=== PATIENT | female | born 1975 | race American Indian/Alaskan Native ===

== ENCOUNTER 2016-02-18 07:01 | Emergency (ER) | payer SELFPAY ==
[2016-02-18] MEDS ORDERED: MORPHINE IV ONE (07:28)
[2016-02-18] MEDS ORDERED: NACL 0.9% 1000 ML 1,000 ML IV ONE (07:28)
[2016-02-18] MEDS ORDERED: DUONEB 0.5 MG-3 MG/3 ML SOLN IH ONE (07:28)
[2016-02-18] MEDS ORDERED: ZOFRAN IV ONE (07:28)
--- NOTE | 2016-02-18 07:34 | Emergency Department Report ---
HPI - General Chief Complaint: Dyspnea/Respdistress Time Seen by Provider: 02/18/16 07:22 - HPI HPI: The patient is a 40-year-old female presents for evaluation of chest pain and cough. The patient reports sudden onset of severe midsternal chest pain at 5: 30 AM, constant since onset 1 hour prior to arrival, moderate in severity, sharp in quality, and associated with dyspnea, worsened with deep breaths, diaphoresis, and dizziness. She states that her cough has been productive of present for greater than the past one day. She states her current symptoms are not consistent with previous episodes of bronchitis flares. The patient denies fever, syncope, hemoptysis, unilateral leg swelling, oral contraceptive use, recent immobilization, history of DVT or PE, recent cancer, history of familial coagulation disorder. ED Past Medical Hx - Past Medical History Previous Medical History?: Yes Additional medical history: bronchitis - Surgical History Past Surgical History?: No - Social History Smoking Status: Current Every Day Smoker Substance Use Type: Alcohol - Medications Home Medications: Home Medications Medication Instructions Recorded Confirmed Last Taken Type ALBUTEROL Inhaler [ProAir HFA 2 puff IH QID PRN #1 inhalation 02/18/16 Unknown Rx Inhaler] Benzonatate [Tessalon Perles] 100 mg PO Q8HR #14 capsule 02/18/16 Unknown Rx Cyclobenzaprine HCl [Flexeril 5 MG 5 mg PO Q8HR PRN #10 tab 02/18/16 Unknown Rx TAB] Levofloxacin [Levaquin TAB] 500 mg PO QDAY #10 tablet 02/18/16 Unknown Rx ED Review of Systems ROS: Stated complaint: BHAKTI Other details as noted in HPI Constitutional: denies: fever ENT: denies: throat or neck pain Respiratory: reports cough, shortness of breath Cardiovascular: reports: chest pain Endocrine: denies unexplained weight loss or gain Gastrointestinal: denies: abdominal pain, nausea Genitourinary: denies: dysuria Musculoskeletal: denies: leg swelling Skin: denies: rash Neurological: denies: headache Hematological/Lymphatic: denies: easy bleeding or easy bruising Psych: denies sadness or hopelessness Physical Exam - Physical Exam Vital Signs: Vital Signs 02/18/16 07:03 Temperature 98.4 F Pulse Rate 112 H O2 Sat by Pulse 100 Oximetry Physical Exam: General: well-nourished, well-developed, no acute distress Head: Normocephalic, atraumatic Eyes: normal sclera ENT: Mucous membranes are pink and moist Neck: trachea midline, neck supple, No neck stiffness, no cervical adenopathy Respiratory: Minimally diminished breath sounds and expiratory wheezing present to apical lung bergeron bilaterally Cardio: S1 and S2 present, no murmurs, rubs, gallops, capillary refill is brisk Abdomen: Normoactive bowel sounds, soft abdomen, no rigidity, no guarding or rebound tenderness Chest WALL/Back: No tenderness to palpation of the chest wall, no CVA tenderness with percussion Musc: No pitting edema Skin: No rash Neuro: no facial drooping, normal speech Psych: Normal affect ED Course Vital Signs 02/18/16 07:03 Temperature 98.4 F Pulse Rate 112 H O2 Sat by Pulse 100 Oximetry ED Medical Decision Making - Lab Data Result diagrams: 02/18/16 07:21 02/18/16 07:21 - Medical Decision Making The patient was seen and examined by myself. The patient is placed on a manager cardiac and continuous pulse ox. On initial evaluation, the patient was found to be in no distress. EKG was negative for findings suggestive of acute cardiac infarct. Labs and imaging are obtained. The patient is given IV morphine for her chest pain and Tessalon Perles for her cough. Chest x-ray exhibits a small left lower lobe infiltrate consistent with pneumonia, and otherwise was negative for emergent disease process. Lab results were non- concerning including levels of troponin, WBC, hemoglobin, hematocrit, electrolytes, renal function. CT angiogram of the chest confirms left lower lobe pneumonia, and otherwise is negative for findings concerning for aortic dissection, pulmonary embolism, or other emergent disease process at this time. The patient given a tablet of Levaquin for treatment of pneumonia. The patient was reevaluated and reported that their symptoms were markedly improved. On reexamination the patient is found to have normal respiratory rate and O2 sat on pulse oximetry, with no costal retractions or diminishment of breath sounds on auscultation. As the patient has a JODIE risk score less than 2, and a negative CTA chest, the patient is at low risk of ACS or pulmonary emboli etiology of their symptoms. The patient is stable for discharge with outpatient follow-up. The patient is given follow-up and return instructions. The patient expressed understanding and agreed with the plan. The patient is discharged in stable condition. Critical care attestation.: If time is entered above; I have spent that time in minutes in the direct care of this critically ill patient, excluding procedure time. ED Disposition Clinical Impression: Acute chest pain, Acute dyspnea Pneumonia Qualifiers: Pneumonia type: due to unspecified organism Laterality: left Lung location: lower lobe of lung Qualified Code(s): J18.9 - Pneumonia, unspecified organism Disposition: DISCHARGED TO HOME OR SELFCARE Is pt being admited?: No Does the pt Need Aspirin: No Condition: Stable Instructions: Chest Pain (ED), Bacterial Pneumonia (ED) Prescriptions: Cyclobenzaprine HCl [Flexeril 5 MG TAB] 5 mg PO Q8HR PRN #10 tab PRN Reason: Pain Levofloxacin [Levaquin TAB] 500 mg PO QDAY #10 tablet ALBUTEROL Inhaler [ProAir HFA Inhaler] 2 puff IH QID PRN #1 inhalation PRN Reason: Shortness Of Breath Benzonatate [Tessalon Perles] 100 mg PO Q8HR #14 capsule Referrals: PRIMARY CARE, [Primary Care Provider] - 3-5 Days Time of Disposition: 10:32
[2016-02-18 07:39] LABS: Eosinophils % (Auto) 2.5 % (0.0-4.3); Hematocrit 37.2 % (30.3-42.9); Hemoglobin 12.1 gm/dl (10.1-14.3); Mean Corpuscular HGB Conc 33 % (30-34); Mean Corpuscular Volume 75 fl (79-97); Platelet Count 342 K/mm3 (140-440); Red Blood Count 4.96 M/mm3 (3.65-5.03); White Blood Count 7.5 K/mm3 (4.5-11.0)
[2016-02-18 07:49] LABS: Mean Corpuscular Hemoglobin 24 pg (28-32); Red Cell Distribution Width 20.9 % (13.2-15.2)
[2016-02-18 07:49] LABS: INR 0.91 (0.87-1.13)
[2016-02-18] MEDS ORDERED: NACL ONE (07:49)
[2016-02-18 07:50] LABS: Partial Thromboplastin Time 26.3 Sec. (24.2-36.6)
[2016-02-18 08:03] LABS: Anion Gap 23 mmol/L; Blood Urea Nitrogen 14 mg/dL (7-17); Calcium 8.6 mg/dL (8.4-10.2); Carbon Dioxide 20 mmol/L (22-30); Chloride 103.2 mmol/L (98-107); Glucose 77 mg/dL (65-100); Potassium 4.3 mmol/L (3.6-5.0); Sodium 142 mmol/L (137-145)
--- NOTE | 2016-02-18 09:12 | XRay Report ---
CHEST 2 VIEWS: INDICATION: Shortness of breath. COMPARISON: None similar at this institution. FINDINGS: PA and lateral chest radiographs demonstrate approximately 4.5 x 3.5 cm left lower lobe pneumonia with slight left lateral costophrenic angle blunting/possible fluid. Clear remainder lungs. Normal cardiomediastinal silhouette. EKG leads. Unremarkable bones. CONCLUSION: Left lower lobe pneumonia, as described. Thank you for the opportunity to participate in this patient's care.
--- NOTE | 2016-02-18 09:41 | Admit Criteria Form ---
Admission Criteria Documentation: CHEST PAIN Clinical Indications for Admission to Inpatient Care (Place 'X' for any and all applicable criteria): Admission is indicated for chest pain and ANY ONE of the following(1)(2)(3)(4)(5 ): [ ]I. Angina with acute coronary syndrome (Also use Myocardial Infarction or Angina guideline) [ ]II. Hemodynamic instability [X]III. Angina needing acute intervention as indicated by ALL of the following( 11)(12): [X ]a) Unstable angina is present as indicated by angina that is ANY ONE of the following: [X ]i) New onset [ ]ii) Nocturnal [ ]iii) Prolonged at rest [ ]iv) Progressive [ X]b) Angina warrants acute intervention as indicated by ANY ONE of the following: [ ]i) Recurrent angina (e.g, not responding as previously to treatment) [ X]ii) Angina at rest or with low-level activities despite initial medical therapy [ ]iii) New or presumably new ST-segment depression on ECG [ ]iv) Signs or symptoms of heart failure (eg, dyspnea, pulmonary edema) [ ]v) New or worsening mitral regurgitation [ ]vi) Hemodynamic instability [ ]vii) Dangerous arrhythmia (eg, sustained ventricular tachycardia) [ ]viii) History of percutaneous coronary intervention within 6 months [ ]ix) History of coronary artery bypass graft surgery []x) JODIE risk score of 2 or greater[A] [ ]xi) History of Diabetes(14) [ ]xii) High-risk cardiac ischemia findings on noninvasive testing (e.g, echocardiogram, treadmill testing, nuclear scan) [ ]xiii) Chronic renal insufficiency (ie, estimated GFR less than 60 mL/min/1.732m) [ ]xiv) Left ventricular ejection fraction less than 40% [ ]IV. Evidence of [place] (eg, cardiac biomarkers positive, ST-segment elevation on ECG) also use Myocardial Infarction Criteria Form. [ ]V. Pulmonary edema [ ]. Respiratory distress [ ]VII. Chest pain indicative of serious diagnosis other than coronary artery disease (eg, aortic dissection) [ ]VIII. Contraindications and/or Inappropriate clinical situations for Observational Care in patients with Chest Pain, when ANY ONE of the following is required: [ ]a) Patient with risk factor for pulmonary embolism, acute coronary syndrome and myocardial infarction (18) [ ]b) Patient with Pulmonary embolism require an average LOS of 4.3 days, therefore emergency department observation management is inappropriate 18,23 [ ]c) Painful condition/s in the elderly, have the highest rate of recidivism after emergency department observation management (10.8%) 20,21,22 [ ]d) Elevated cardiac biomarker requires intensive and exhaustive care (19) [ ]IX. General contraindications and/or Inappropriate clinical situations for Observational Care in patients with Chest Pain, when ANY ONE of the following is required: [ ]a) Prediction of prolongation of LOS based on ANY ONE of the following may be considered as a contraindication for observational care 2, 3, 4, 5, 6, 7, 8, 9, 10, 11 [ ]i) Age > 65 yrs. [ ]ii) Patient arriving by ambulance [ ]iii) Patient with high acuity [ ]iv) Patient requiring vital sign monitoring [ ]v) Patient on IV medication [ ]b) Systolic blood pressures 180mmHg 3,12 [ ]c) Patient with altered mental status including delirium and other alteration of consciousness, (3) [ ]d) Patient whose discharge disposition will be to a long term home or rehabilitation home should not be managed in Emergency Department Observation Unit. CMS rule requires 3 days hospital stay before such placement. 3,13 [ ]e) Patient with failure to thrive due to broad array of etiologies 3,16,17 [ ]f) Inability to ambulate 3,14 Extended stay beyond goal length of stay may be needed for (1)(28): [ ]a) Specific condition diagnosed after evaluation (eg, pulmonary embolism, aortic dissection) [ ]b) Unstable angina [ ]c) Continued suspicion of acute coronary syndrome with inability to complete needed cardiac evaluation (eg, patient clinically unable to undergo stress testing) [ ]d) Myocardial infarction (Contents from ANGINA and CHEST PAIN clinical indications for admission to inpatient care have been integrated in this form) The original [employer] content created by [employer] has been revised. The portions of the content which have been revised are identified through the use of italic text or in bold, and [employer] has neither reviewed nor approved the modified material. All other unmodified content is copyright [employer]. Please see references footnoted in the original [employer] edition 2016
[2016-02-18] MEDS ORDERED: TESSALON PERLES PO ONE ×2 (10:34→13:01)
--- NOTE | 2016-02-18 12:23 | Cat Scan Report ---
CTA CHEST INDICATION: Chest pain. COMPARISON: None similar. FINDINGS: Chest CTA performed following intravenous administration of 100 cc of Omnipaque 350. Rotational MIP's also obtained. Unremarkable heart and great vessels. Mild left hilar lymphoid soft tissue prominence measuring 1.1 x 1 cm, axial image 138, series 2. No effusions or other size significant adenopathy. Patent central airway. However, left lower lobe bronchiectasis with intraluminal debris/mucus plugging noted with infiltrate measuring maximum of 4.4 x 1.5 cm as on axial image 197, series 2. Mild left lower lobe scarring and few smaller surrounding interstitial nodular densities may also be present. Clear remainder lungs. Unremarkable thyroid. Nonspecific distal esophageal wall thickening, not excluded for gastroesophageal reflux and/or hiatal hernia, amongst others. Few upper abdominal images demonstrate a 7 mm left hepatic hypodensity anteriorly about the midline, axial image 230, series 2. Unremarkable bones. CONCLUSION: 1. No CT evidence of pulmonary embolism. 2. Left lower lobe bronchiectasis with mucus plugging and infiltrates/pneumonia noted, as described. Please also correlate clinically and with prior relevant imaging as well, if available. Please note that this is a redictation with original report lost due to technical reasons. Thank you for the opportunity to participate in this patient's care.
[2016-02-18] MEDS ORDERED: LEVAQUIN PO ONE (12:55)
[2016-02-18 13:54] VITALS: BP 151/96
== END 2016-02-18 13:10 | disposition home or self-care (01) ==
LOC: ED 07:01
DX: J18.9 Pneumonia, unspecified organism (principal); R07.81 Pleurodynia; R06.00 Dyspnea, unspecified; F17.200 Nicotine dependence, unspecified, uncomplicated
CPT/HCPCS: 36415; 71020; 71275; 80048; 83880; 84484; 84703; 85025; 85610; 85730; 93005; 93010; 94640; 96361; 96374; 96375; 99285; J2270; J2405; J7030; Q9967

== ENCOUNTER 2016-03-10 08:20 | Emergency (ER) | payer SELFPAY ==
[2016-03-10] MEDS ORDERED: TORADOL IM ONE (17:43)
--- NOTE | 2016-03-10 17:48 | Emergency Department Report ---
ED Headache HPI - General Chief Complaint: Headache Time Seen by Provider: 03/10/16 17:13 Source: patient Exam Limitations: no limitations - History of Present Illness Initial Comments: This is a 40-year-old female who reports driving the car and turning back behind her to look at the children in the back seat. She states she suddenly felt the an electric sensation going up her neck on the left aspect. She states after that she had sensation of discomfort and pressure in the left posterior aspect of her head. She describes after that as well having numbness sensation going down her left arm and left leg. She drove herself to the emergency department for further evaluation. She has been here now for 5 hours. She states that over that time. She has had significant resolution of the numbness of her arm and leg. She describes still having some mild head discomfort in the posterior aspect again. She denies any aura she denies any nausea she states that she does get tightness in her neck frequently and this is associated with headache. She states that she does take ibuprofen for this at home with good resolution typically. She denies any weakness associated with this. Denies any specific trauma otherwise. Denies any recent chiropractic E. She states that in general she considers herself in good health. Timing/Duration: 4-6 hours Quality: moderate Recent Head Trauma: no recent headache/trauma Modifying Factors: improves with: movement Associated Symptoms: numbness in legs/feet. denies: fever/chills, nausea/ vomiting Allergies/Adverse Reactions: Allergies No Known Allergies Allergy (Verified 02/18/16 07:52) Home Medications: Ambulatory Orders ALBUTEROL Inhaler [ProAir HFA Inhaler] 2 puff IH QID PRN #1 inhalation 02/18/16 Benzonatate [Tessalon Perles] 100 mg PO Q8HR #14 capsule 02/18/16 Cyclobenzaprine HCl [Flexeril 5 MG TAB] 5 mg PO Q8HR PRN #10 tab 02/18/16 Levofloxacin [Levaquin TAB] 500 mg PO QDAY #10 tablet 02/18/16 ED Review of Systems ROS: Stated complaint: Other details as noted in HPI Constitutional: denies: chills, fever Eyes: denies: eye pain, eye discharge, vision change ENT: denies: ear pain, throat pain Respiratory: denies: cough, shortness of breath, wheezing Cardiovascular: denies: chest pain, palpitations Endocrine: no symptoms reported Gastrointestinal: denies: abdominal pain, nausea, diarrhea Genitourinary: denies: urgency, dysuria, discharge Musculoskeletal: denies: back pain, joint swelling, arthralgia Skin: denies: rash, lesions Neurological: headache, paresthesias. denies: weakness Psychiatric: denies: anxiety, depression Hematological/Lymphatic: denies: easy bleeding, easy bruising ED Past Medical Hx - Past Medical History Additional medical history: bronchitis - Social History Smoking Status: Current Every Day Smoker Substance Use Type: Alcohol - Medications Home Medications: Home Medications Medication Instructions Recorded Confirmed Last Taken Type ALBUTEROL Inhaler [ProAir HFA 2 puff IH QID PRN #1 inhalation 02/18/16 Unknown Rx Inhaler] Benzonatate [Tessalon Perles] 100 mg PO Q8HR #14 capsule 02/18/16 Unknown Rx Cyclobenzaprine HCl [Flexeril 5 MG 5 mg PO Q8HR PRN #10 tab 02/18/16 Unknown Rx TAB] Levofloxacin [Levaquin TAB] 500 mg PO QDAY #10 tablet 02/18/16 Unknown Rx ED Physical Exam - General General appearance: alert, in no apparent distress - Head Head exam: Present: atraumatic, normocephalic - Eye Eye exam: Present: normal appearance, PERRL, EOMI - ENT ENT exam: Present: mucous membranes moist - Neck Neck exam: Present: tenderness (L posterior aspect with mild spams), full ROM. Absent: meningismus, lymphadenopathy - Respiratory Respiratory exam: Present: normal lung sounds bilaterally. Absent: respiratory distress - Cardiovascular Cardiovascular Exam: Present: regular rate, normal rhythm. Absent: systolic murmur, diastolic murmur, rubs, gallop - GI/Abdominal GI/Abdominal exam: Present: soft, normal bowel sounds - Extremities Exam Extremities exam: Present: normal inspection, full ROM. Absent: pedal edema, calf tenderness - Back Exam Back exam: Present: normal inspection - Neurological Exam Neurological exam: Present: alert, oriented X3, CN II-XII intact, normal gait, reflexes normal. Absent: motor sensory deficit - Psychiatric Psychiatric exam: Present: normal affect, normal mood - Skin Skin exam: Present: warm, dry, intact, normal color. Absent: rash ED Course - Reevaluation(s) Reevaluation #1: 03/10/16 17:50 Complete neurologic examination demonstrates no focal deficit. Patient is able to do it without without difficulty.. Finger to nose is approaching appropriate. The patient is able to walk on heels and toes without difficulty. She is well appearing in general. I do not feel any further evaluation is necessary at this time. Initial laboratory studies through triage were obtained these are noted no concerning findings noted. Patient instructed to trial just symptomatically treatment with gentle stretching as well as relaxation techniques. She is also started to take ibuprofen when necessary for the pain. She agrees with the plan. I do not have any suspicion of strokelike syndrome or space-occupying lesion in the cranium. Patient agrees to return if she has any further symptoms. Critical care attestation.: If time is entered above; I have spent that time in minutes in the direct care of this critically ill patient, excluding procedure time. ED Disposition Clinical Impression: Tension headache Disposition: DISCHARGED TO HOME OR SELFCARE Is pt being admited?: No Does the pt Need Aspirin: No Condition: Stable Instructions: Tension Headache (ED) Additional Instructions: Take ibuprofen 400mg every 6hours as needed for pains. Gentle stretching exercises. Consider heat. Referrals: PRIMARY CARE, [Primary Care Provider] - 3-5 Days Time of Disposition: 17:45
[2016-03-10 18:44] VITALS: BP 149/102
== END 2016-03-10 18:42 | disposition home or self-care (01) ==
LOC: ED 08:20
DX: G44.209 Tension-type headache, unspecified, not intractable (principal); F17.200 Nicotine dependence, unspecified, uncomplicated
CPT/HCPCS: 96372; 99281; J1885

== ENCOUNTER 2021-05-08 04:47 | Emergency (ER) | payer SELFPAY ==
--- NOTE | 2021-05-08 06:16 | XRay Report ---
CHEST 1 VIEW INDICATION / CLINICAL INFORMATION: dizziness. COMPARISON: None available. FINDINGS: SUPPORT DEVICES: None. HEART / MEDIASTINUM: No significant abnormality. LUNGS / PLEURA: The lungs are clear. No pneumothorax. BONES: No significant osseous abnormality. ADDITIONAL FINDINGS: No significant additional findings. IMPRESSION: 1. No active cardiopulmonary disease. Signer Name: Jace Oneal II, MD Signed: 05/08/2021 6:12 AM Workstation Name: [id number]
[2021-05-08 06:17] LABS: Basophils # (Auto) 0.1 K/mm3 (0.0-0.1); Basophils % (Auto) 0.8 % (0.0-1.8); Eosinophils # (Auto) 0.1 K/mm3 (0.0-0.4); Eosinophils % (Auto) 1.2 % (0.0-4.3); Hematocrit 42.7 % (30.3-42.9); Hemoglobin 14.3 gm/dl (10.1-14.3); Lymphocytes # (Auto) 1.4 K/mm3 (1.2-5.4); Lymphocytes % (Auto) 19.8 % (13.4-35.0); Mean Corpuscular HGB Conc 33 % (30-34); Mean Corpuscular Volume 90 fl (79-97); Monocytes # (Auto) 0.5 K/mm3 (0.0-0.8); Monocytes % (Auto) 6.7 % (0.0-7.3); Platelet Count 301 K/mm3 (140-440); Red Blood Count 4.73 M/mm3 (3.65-5.03); Red Cell Distribution Width 15.6 % (13.2-15.2)
[2021-05-08 06:36] LABS: Alanine Aminotransferase 38 units/L (7-56); Albumin 4.2 g/dL (3.9-5); BUN/Creatinine Ratio 11; Blood Urea Nitrogen 9 mg/dL (7-17); Calcium 9.1 mg/dL (8.4-10.2); Hemolysis Index 29
[2021-05-08] MEDS ORDERED: ONDANSETRON 4 MG ODT TAB PO ONE ×2 (06:50→10:00)
[2021-05-08] MEDS ORDERED: DEXAMETHASONE 4 MG TAB PO ONE ×2 (06:50→10:00)
[2021-05-08] MEDS ORDERED: MECLIZINE 25 MG TAB PO ONE ×2 (06:51→10:00)
--- NOTE | 2021-05-08 07:38 | Cat Scan Report ---
CT HEAD WITHOUT CONTRAST INDICATION / CLINICAL INFORMATION: Dizziness. Syncope TECHNIQUE: Axial imaging performed from the skull apex through the skull base without the use of cont rast. Sagittal and coronal reformatted images. All CT scans at this location are performed using CT dose reduction for ALARA by means of automated exposure control. COMPARISON: None available. FINDINGS: CEREBRAL PARENCHYMA: No acute parenchymal abnormality is identified. The rubalcava-white interface is pres erved. 9 mm focal chronic infarct is noted in the right frontal white matter adjacent to the right fr ontal horn of the ventricular system. HEMORRHAGE: None. EXTRA-AXIAL SPACES: Normal in size and morphology for the patient's age. VENTRICULAR SYSTEM: Normal in size and morphology for the patient's age. MIDLINE SHIFT OR HERNIATION: None. CEREBELLUM / BRAINSTEM: No significant abnormality. CALVARIUM: No significant abnormality. ORBITS: Normal as visualized. PARANASAL SINUSES / MASTOID AIR CELLS: Normal as visualized. SOFT TISSUES of HEAD: No significant abnormality. ADDITIONAL FINDINGS: None. IMPRESSION: No acute intracranial abnormality. 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 Signer Name: Trevor Souza Jr, MD Signed: 05/08/2021 7:34 AM Workstation Name: [id number]
--- NOTE | 2021-05-08 07:43 | Emergency Department Report ---
<RAHEEM MCLEAN - Last Filed: 05/08/21 09:49> ED Dizziness HPI - General Chief Complaint: Dizziness Stated Complaint: DIZZY,HEADACHE Time Seen by Provider: 05/08/21 06:23 - Related Data Previous Rx's Medication Instructions Recorded Last Taken Type Albuterol Mdi (or & Nicu Only) 2 puff IH QID PRN #1 inhalation 02/18/16 Unknown Rx [ProAir HFA Inhaler] Benzonatate [Tessalon Perles] 100 mg PO Q8HR #14 capsule 02/18/16 Unknown Rx Cyclobenzaprine HCl [Flexeril 5 MG 5 mg PO Q8HR PRN #10 tab 02/18/16 Unknown Rx TAB] levoFLOXacin [Levaquin TAB] 500 mg PO QDAY #10 tablet 02/18/16 Unknown Rx Allergies Allergy/AdvReac Type Severity Reaction Status Date / Time diclofenac Allergy Hives Verified 05/08/21 09:29 Penicillins AdvReac Hives Verified 05/08/21 09:19 ED Past Medical Hx - Medications Home Medications: Home Medications Medication Instructions Recorded Confirmed Last Taken Type Albuterol Mdi (or & Nicu Only) 2 puff IH QID PRN #1 inhalation 02/18/16 05/08/21 Unknown Rx [ProAir HFA Inhaler] Benzonatate [Tessalon Perles] 100 mg PO Q8HR #14 capsule 02/18/16 05/08/21 Unknown Rx Cyclobenzaprine HCl [Flexeril 5 MG 5 mg PO Q8HR PRN #10 tab 02/18/16 05/08/21 Unknown Rx TAB] levoFLOXacin [Levaquin TAB] 500 mg PO QDAY #10 tablet 02/18/16 05/08/21 Unknown Rx ED Medical Decision Making - Lab Data Result diagrams: 05/08/21 05:54 05/08/21 05:54 ED Disposition Clinical Impression: Stroke Disposition: 09 ADMITTED INPATIENT Is pt being admited?: Yes Does the pt Need Aspirin: No Condition: Good Referrals: PRIMARY CARE, [Primary Care Provider] - 3-5 Days <YOVANA BARRIENTOS - Last Filed: 05/08/21 10:56> ED Dizziness HPI - General Source: patient, family Mode of arrival: Wheelchair Limitations: No Limitations - History of Present Illness Initial Comments: 45-year-old black female with past medical history of panic attacks presents to the emergency department for evaluation of dizziness. She states that she was watching television around 3:00 this a.m. and started having some dizziness with the feeling of the room spinning around followed by double vision, nausea, and headache. She states that symptoms are not worse with changing position, and headache and double vision have resolved. She still has some dizziness and nausea. MD Complaint: dizziness -: Sudden Timing: sudden onset Description: "room spinning" History of Same: No History of Trauma: No Severity: moderate Improves With: nothing Worsens With: nothing Associated Symptoms: cough. denies: ataxia, chest pain, diaphoresis, fever/chills, loss of appetite, malaise, rash, seizure, shortness of breath, syncope, weakness ED Review of Systems ROS: Stated complaint: DIZZY,HEADACHE Other details as noted in HPI Comment: All other systems reviewed and negative Constitutional: denies: chills, fever Eyes: denies: vision change ENT: denies: throat pain, congestion Respiratory: cough. denies: shortness of breath, SOB with exertion, SOB at rest Cardiovascular: denies: chest pain, palpitations, dyspnea on exertion, orthopnea, edema, paroxysmal nocturnal dyspnea Gastrointestinal: denies: abdominal pain, nausea, vomiting, diarrhea, hematemesis, melena, hematochezia Genitourinary: denies: urgency, dysuria Musculoskeletal: denies: back pain Neurological: headache, vertigo. denies: weakness, numbness, paresthesias, confusion, abnormal gait ED Past Medical Hx - Past Medical History Additional medical history: bronchitis - Social History Smoking Status: Current Every Day Smoker Substance Use Type: Alcohol ED Physical Exam - General Limitations: No Limitations General appearance: alert, in no apparent distress - Head Head exam: Present: atraumatic, normocephalic - Eye Eye exam: Present: normal appearance. Absent: conjunctival injection, nystagmus - ENT ENT exam: Absent: normal exam (Bilateral mucosal edema and turbinate swelling) - Neck Neck exam: Present: normal inspection. Absent: tenderness, lymphadenopathy - Respiratory Respiratory exam: Present: normal lung sounds bilaterally. Absent: respiratory distress, wheezes, rales, rhonchi, stridor, chest wall tenderness, accessory muscle use - Cardiovascular Cardiovascular Exam: Present: regular rate, normal heart sounds - GI/Abdominal GI/Abdominal exam: Present: soft, normal bowel sounds. Absent: distended, tenderness, guarding, rebound, rigid - Extremities Exam Extremities exam: Present: normal inspection - Back Exam Back exam: Present: normal inspection. Absent: tenderness, CVA tenderness (R), CVA tenderness (L) - Neurological Exam Neurological exam: Present: alert, oriented X3, abnormal gait (Abnormal tandem gait), reflexes normal. Absent: motor sensory deficit - Expanded Neurological Exam Expanded Patient oriented to: Present: person, place, time Speech: Present: fluid speech Cranial nerves: EOM's Intact: Normal, Tongue Deviation: Normal, Nystagmus: Normal, Facial Sensation: Normal Ataxia: Absent: yes Cerebellar function: Finger to Nose: Normal, Heel to Reeder: Normal, Romberg: Abnormal Right Upper motor neuron: Pronator Drift: Normal, Babinski Sign: Normal Sensory exam: Upper Extremity Light Touch: Normal, Upper Extremity Temperature: Normal, Lower Extremity Light Touch: Normal, Lower Extremity Temperature: Normal Motor strength exam: RUE: 5, LUE: 5, RLE: 5, LLE: 5 Best Eye Response ([place]): (4) open spontaneously Best Motor Response ([place]): (6) obeys commands Best Verbal Response ([place]): (5) oriented Dipika Total: 15 - Psychiatric Psychiatric exam: Present: normal affect, normal mood - Skin Skin exam: Present: warm, dry, intact, normal color ED Course Vital Signs 05/08/21 05/08/21 04:49 09:35 Temperature 98.0 F Pulse Rate 92 H 87 Respiratory 18 16 Rate Blood Pressure 151/97 Blood Pressure 146/89 [Left] O2 Sat by Pulse 95 100 Oximetry ED Medical Decision Making - Lab Data Result diagrams: 05/08/21 05:54 05/08/21 05:54 - Radiology Data Radiology results: report reviewed, image reviewed Chest x-ray: FINDINGS: SUPPORT DEVICES: None. HEART / MEDIASTINUM: No significant abnormality. LUNGS / PLEURA: The lungs are clear. No pneumothorax. BONES: No significant osseous abnormality. ADDITIONAL FINDINGS: No significant additional findings. IMPRESSION: 1. No active cardiopulmonary disease. CT head without contrast: FINDINGS: CEREBRAL PARENCHYMA: No acute parenchymal abnormality is identified. The rubalcava- white interface is preserved. 9 mm focal chronic infarct is noted in the right frontal white matter adjacent to the right frontal horn of the ventricular system. HEMORRHAGE: None. EXTRA-AXIAL SPACES: Normal in size and morphology for the patient's age. VENTRICULAR SYSTEM: Normal in size and morphology for the patient's age. MIDLINE SHIFT OR HERNIATION: None. CEREBELLUM / BRAINSTEM: No significant abnormality. CALVARIUM: No significant abnormality. ORBITS: Normal as visualized. PARANASAL SINUSES / MASTOID AIR CELLS: Normal as visualized. SOFT TISSUES of HEAD: No significant abnormality. ADDITIONAL FINDINGS: None. IMPRESSION: No acute intracranial abnormality. Chronic focal infarct in the right frontal white matter as described. - Medical Decision Making 45-year-old black female with past medical history of panic attacks presents to the emergency department for evaluation of dizziness. She states that she was watching television around 3:00 this a.m. and started having some dizziness with the feeling of the room spinning around followed by double vision, nausea, and headache. She states that symptoms are not worse with changing position, and headache and double vision have resolved. She still has some dizziness and nausea Patient noted to have abnormal tandem gait. Case was reviewed with the ER physician, Dr. Mclean, code stroke was called, and request was placed for tele neuro consult. Care was taken over by . - Differential Diagnosis Benign paroxysmal positional vertigo, CVA, sinusitis Critical care attestation.: If time is entered above; I have spent that time in minutes in the direct care of this critically ill patient, excluding procedure time.
--- NOTE | 2021-05-08 08:07 | Event Note ---
Date of service: 05/08/21 Face to Face: For this encounter I have reviewed the PA/TAX MANAGER PUBLIC documentation, treatment plan, medical decision making, and I had face to face time with this patient. The patient is a 45-year-old female, who around 230 or 3:00 AM reports development of dizziness and binocular blurry vision. The patient is found to have an unsteady tandem gait as per the treating and evaluating nurse practitioner However, she told the nurse who triaged her that she had dizziness since 15: 30 p.m. yesterday. Please note that this patient was not brought to my attention until 8:00 AM. At this point in time, this patient is not a TPA candidate. CT angiogram head and neck ordered. Have requested code stroke activation. The patient is seen and evaluated by stroke neurologist, Dr. Contreras. We agreed to obtain CT angiogram head and neck. It is unclear when the patient's last known well time is. It is unclear if her last known well time is yesterday, or this morning. Given this, not a TPA candidate. If CTA shows no emergent findings that would require transfer, patient will be admitted to our medical service Reassessed at 09: [address] angiogram head and neck negative for large vessel occlusion or dissection Aspirin is ordered. Hospital physician, Dr. Wright to admit to [facility] Vital Signs 05/08/21 04:49 Temperature 98.0 F Pulse Rate 92 H Respiratory 18 Rate Blood Pressure 151/97 O2 Sat by Pulse 95 Oximetry Lab Results 05/08/21 05/08/21 Range/Units 05:54 05:54 WBC 7.1 (4.5-11.0) K/mm3 RBC 4.73 (3.65-5.03) M/mm3 Hgb 14.3 (10.1-14.3) gm/dl Hct 42.7 (30.3-42.9) % MCV 90 (79-97) fl MCH 30 (28-32) pg MCHC 33 (30-34) % RDW 15.6 H (13.2-15.2) % Plt Count 301 (140-440) K/mm3 Lymph % (Auto) 19.8 (13.4-35.0) % [place] % (Auto) 6.7 (0.0-7.3) % Eos % (Auto) 1.2 (0.0-4.3) % Baso % (Auto) 0.8 (0.0-1.8) % Lymph # (Auto) 1.4 (1.2-5.4) K/mm3 [place] # (Auto) 0.5 (0.0-0.8) K/mm3 Eos # (Auto) 0.1 (0.0-0.4) K/mm3 Baso # (Auto) 0.1 (0.0-0.1) K/mm3 Seg Neutrophils % 71.5 H (40.0-70.0) % Seg Neutrophils # 5.1 (1.8-7.7) K/mm3 Sodium 136 L (137-145) mmol/L Potassium 4.9 (3.6-5.0) mmol/L Chloride 100.7 (98-107) mmol/L Carbon Dioxide 20 L (22-30) mmol/L Anion Gap 20 mmol/L BUN 9 (7-17) mg/dL Creatinine 0.8 (0.6-1.2) mg/dL Estimated GFR > 60 ml/min BUN/Creatinine Ratio 11 % Glucose 73 (65-100) mg/dL Calcium 9.1 (8.4-10.2) mg/dL Total Bilirubin 0.20 (0.1-1.2) mg/dL AST 49 H (5-40) units/L ALT 38 (7-56) units/L Alkaline Phosphatase 83 (35-129) units/L Troponin T < 0.010 (0.00-0.029) ng/mL Total Protein 7.8 (6.3-8.2) g/dL Albumin 4.2 (3.9-5) g/dL Albumin/Globulin Ratio 1.2 % The EKG is interpreted by myself at 08: 1 2 PM Sinus rhythm, 80 bpm. Normal axis, normal P wave axis, left ventricular hypertrophy, poor R wave progression, QTC 4 5 9 ms. Abnormal EKG. Not a STEMI. CHEST 1 VIEW INDICATION / CLINICAL INFORMATION: dizziness. COMPARISON: None available. FINDINGS: SUPPORT DEVICES: None. HEART / MEDIASTINUM: No significant abnormality. LUNGS / PLEURA: The lungs are clear. No pneumothorax. BONES: No significant osseous abnormality. ADDITIONAL FINDINGS: No significant additional findings. IMPRESSION: 1. No active cardiopulmonary disease. Signer Name: Jace Oneal II, MD Signed: 05/08/2021 5:12 AM Workstation Name: [id number] CT HEAD WITHOUT CONTRAST INDICATION / CLINICAL INFORMATION: Dizziness. Syncope TECHNIQUE: Axial imaging performed from the skull apex through the skull base without the use of contrast. Sagittal and coronal reformatted images. All CT scans at this location are performed using CT dose reduction for ALARA by means of automated exposure control. COMPARISON: None available. FINDINGS: CEREBRAL PARENCHYMA: No acute parenchymal abnormality is identified. The rubalcava-white interface is preserved. 9 mm focal chronic infarct is noted in the right frontal white matter adjacent to the right frontal horn of the ventricular system. HEMORRHAGE: None. EXTRA-AXIAL SPACES: Normal in size and morphology for the patient's age. VENTRICULAR SYSTEM: Normal in size and morphology for the patient's age. MIDLINE SHIFT OR HERNIATION: None. CEREBELLUM / BRAINSTEM: No significant abnormality. CALVARIUM: No significant abnormality. ORBITS: Normal as visualized. PARANASAL SINUSES / MASTOID AIR CELLS: Normal as visualized. SOFT TISSUES of HEAD: No significant abnormality. ADDITIONAL FINDINGS: None. IMPRESSION: No acute intracranial abnormality. Chronic focal infarct in the right frontal white matter as described. Signer Name: Trevor Souza Jr, MD Signed: 05/08/2021 6:34 AM Workstation Name: [id number] CTA NECK WITH CONTRAST HISTORY: "Stroke COMPARISON: None. TECHNIQUE: Routine CTA of the neck was performed. 3-D/MIP reformats were postprocessed. Percentage stenosis is determined by direct quantitative measurements of diseased internal carotid artery diameter compared with normal distal internal carotid artery reference segments or by criteria similar to NASCET where applicable.All CT scans at this location are performed using CT dose reduction for ALARA by means of automated exposure control CONTRAST: 100 ml of Omnipaque 350 FINDINGS: Aortic arch: No significant abnormality. Cervical vertebral arteries: No significant abnormality. Left vertebral artery originating from aorta Common carotid arteries: No significant abnormality. Carotid bifurcations: Normal bilaterally Cervical internal carotid arteries: No significant abnormality. Additional findings: None. IMPRESSION: No significant abnormality. CTA HEAD WITH CONTRAST HISTORY: FINDINGS: CTA Head: Intracranial vertebral arteries: No significant abnorma lity. Basilar artery: No significant abnormality. Posterior cerebral arteries: Right posterior cerebral arteries: Normal Left posterior cerebral artery: Approximately 50% narrowing at the left P2 segment; good antegrade flow Intracranial internal carotid arteries: No significant abnormality. Anterior cerebral arteries: No significant abnormality. Middle cerebral arteries: No significant abnormality. Dural venous sinuses:Not optimally opacified. No significant abnormality. Additional findings: None. IMPRESSION: 1. [place] of [place] and middle cerebral artery trifurcations normal 50% stenoses in the P2 segment of the left posterior cerebral artery Signer Name: Ryan Mota MD Signed: 05/08/2021 8:39 AM Workstation Name: [email or web address] CTA Head: Intracranial vertebral arteries: No significant abnormality. Basilar artery: No significant abnormality. Posterior cerebral arteries: Right posterior cerebral arteries: Normal Left posterior cerebral artery: Approximately 50% tamela rowing at the left P2 segment; good antegrade flow Intracranial internal carotid arteries: No significant abnormality. Anterior cerebral arteries: No significant abnormality. Middle cerebral arteries: No significant abnormality. Dural venous sinuses:Not optimally opacified. No significant abnormality. Additional findings: None.
--- NOTE | 2021-05-08 08:20 | Emergency Department Report ---
Blank Doc - Documentation Documentation: [facility] Consult Note # Demographics Consult Type: Acute Stroke Level 2 (4.5-24 hrs) Patient Location: Emergency Room First Name: lora Last Name: muriel Date of : 1975 Age: 45 Gender: Female Facility: [facility] Time of Initial Page ( Time): 05/08/2021, 08:07 Time of Return Call ( Time): 05/08/2021, 08:07 # HPI History: pt presented with dizziness and double vision since 0300 EST. initally was thought to have onset at 1530 yesterday Last Known Normal: I have collected independent history specific to time last normal or last known well. We have collaborated with the provider and at this time, we have the most current timeline with the information that is available. # Scores Time of exam and NIHSS ( Time): 05/08/2021, 08:07 Level of Consciousness 1a: [0] = Alert; keenly responsive LOC Questions 1b: [0] = Answers both questions correctly LOC Commands 1c: [0] = Performs both tasks correctly Best Gaze 2: [0] = Normal Visual 3: [0] = No visual loss Facial Palsy 4: [0] = Normal symmetrical movements Motor Arm Left 5a: [0] = No drift Motor Arm Right 5b: [0] = No drift Motor Leg Left 6a: [0] = No drift Motor Leg Right 6b: [0] = No drift Limb Ataxia 7: [0] = Absent Sensory 8: [1] = [id number] sensory loss Best Language 9: [0] = No aphasia Dysarthria 10: [0] = Normal Extinction and Inattention 11: [0] = No abnormality NIHSS Total: 1 # Assessment Impression: Ischemic Stroke (Acute) Stroke Mimic # Plan Thrombolytic/Intervention: NOT IV Thrombolysis or IA Intervention candidate Thrombolytic Exclusion: > 4.5 hours Intraarterial Exclusion: clinically consistent with small vessel disease Imaging: (urgency: STAT): CT Angiogram Head and CT Angiogram Neck AND call back with results if abnormal Imaging: (urgency: routine): MRI Brain with AND without contrast Other: would not pursue stroke work-up if MRI is negative I have discussed my recommendations with the referring provider Additional Recommendations: Further work-up based on MRI results # Logistics Telemedicine: Interactive 2 way audio and visual telecommunication technology was utilized during this visit
--- NOTE | 2021-05-08 09:43 | Cat Scan Report ---
CTA NECK WITH CONTRAST HISTORY: "Stroke COMPARISON: None. TECHNIQUE: Routine CTA of the neck was performed. 3-D/MIP reformats were postprocessed. Percentage s tenosis is determined by direct quantitative measurements of diseased internal carotid artery diamete r compared with normal distal internal carotid artery reference segments or by criteria similar to NA SCET where applicable.All CT scans at this location are performed using CT dose reduction for ALARA b y means of automated exposure control CONTRAST: 100 ml of Omnipaque 350 FINDINGS: Aortic arch: No significant abnormality. Cervical vertebral arteries: No significant abnormality. Left vertebral artery originating from aorta Common carotid arteries: No significant abnormality. Carotid bifurcations: Normal bilaterally Cervical internal carotid arteries: No significant abnormality. Additional findings: None. IMPRESSION: No significant abnormality. CTA HEAD WITH CONTRAST HISTORY: FINDINGS: CTA Head: Intracranial vertebral arteries: No significant abnormality. Basilar artery: No significant abnormality. Posterior cerebral arteries: Right posterior cerebral arteries: Normal Left posterior cerebral artery: Approximately 50% narrowing at the left P2 segment; good antegrade fl ow Intracranial internal carotid arteries: No significant abnormality. Anterior cerebral arteries: No significant abnormality. Middle cerebral arteries: No significant abnormality. Dural venous sinuses:Not optimally opacified. No significant abnormality. Additional findings: None. IMPRESSION: 1. [place] of [place] and middle cerebral artery trifurcations normal 50% stenoses in the P2 segment of the left posterior cerebral artery Signer Name: Ryan Mota MD Signed: 05/08/2021 9:39 AM Workstation Name: [id number]
[2021-05-08] MEDS ORDERED: ASPIRIN 81 MG TAB CHEW PO ONE (09:49)
[2021-05-08 10:32] LABS: Bacteria,Urine 2+ /HPF (Negative); Bilirubin,Urine NEG (Negative); Blood,Urine NEG (Negative); Color,Urine Yellow (Yellow); Protein,Urine <15 mg/dL mg/dL (Negative); Urobilinogen,Urine < 2.0 mg/dL (<2.0)
--- NOTE | 2021-05-08 18:07 | Electrocardiograph Report ---
[facility] Test Date: 2021-05-08 Test Time: 06:10:11 Pat Name: KAUSHIK CORNELIUS Department: Room: Gender: F Guard Entrance Registrar: ALFRED : 1975 Requested By: RAHEEM JOSEPH Order Number: [id number] Reading MD: Max Boyer Measurements Intervals [place] Rate: 80 P: 48 KS: 152 QRS: 38 QRSD: 66 T: 6 QT: 397 QTc: 459 Interpretive Statements Sinus rhythm Consider anteroseptal infarct Nonspecific T wave abnormality No previous ECG available for comparison Electronically Signed On 05-08-2021 18:07:04 EDT by Max Boyer
[2021-05-08 21:53] VITALS: BP 162/104
--- NOTE | 2021-05-08 23:15 | Event Note ---
Date: 05/08/21
--- NOTE | 2021-05-08 23:18 | Event Note ---
Date: 05/08/21 Patient comes in for dizziness and weakness for 1 day Also left sided headache Patient was reevaluated at 9 PM Patient was supposed to have been admitted for rule out CVA Telemetry neurology recommendations noted. As per telemetry neurology--NIHSS score was only 1. Recommended MRI with impression of acute ischemic stroke which does not correlate with my findings of a normal neuro exam and no stroke except for uncontrolled blood pressure and dizziness. Patient able to walk without any difficulty. No ataxia. On examination her neurological exam was normal. Patient able to walk and move all 4 extremities. CTA head CTA neck and CT head are all normal. Labs are normal. Blood pressure was slightly high at 140/96. Impression Uncontrolled hypertension Vertigo Patient being discharged on valsartan 160 twice a day and Coreg 6.25 twice a day Also aspirin and Plavix. Follow-up with PCP. Exercise on a regular basis.
== END 2021-05-08 22:01 | disposition home or self-care (01) ==
LOC: ED 04:47
DX: R42 Dizziness and giddiness (principal); R51.9 Headache, unspecified; H53.2 Diplopia; F17.200 Nicotine dependence, unspecified, uncomplicated; Z72.89 Other problems related to lifestyle; Z88.0 Allergy status to penicillin; Z88.8 Allergy status to other drugs, medicaments and biological substances; Z79.899 Other long term (current) drug therapy
CPT/HCPCS: 36415; 70450; 70496; 70498; 71045; 80053; 81001; 84484; 85025; 93005; 99284; J8540; Q9967; J3490; Q0162

== ENCOUNTER 2021-11-03 00:40 | Inpatient (IN) | payer SELFPAY ==
--- NOTE | 2021-11-03 02:24 | Cat Scan Report ---
CT HEAD WITHOUT CONTRAST INDICATION / CLINICAL INFORMATION: HEAD PAIN. TECHNIQUE: All CT scans at this location are performed using CT dose reduction for ALARA by means of automated exposure control. COMPARISON: 05/08/2021 FINDINGS: CEREBRAL/CEREBELLAR PARENCHYMA: Stable small chronic lacunar type infarct within the periventricular white matter of the right frontal lobe. No CT evidence for an acute or subacute territorial infarct. HEMORRHAGE: No acute intra-axial hemorrhage or extra-axial fluid collection. MASS: No mass or mass effect. VENTRICULAR SYSTEM: Normal in size and morphology for the patient's age. ORBITS: No acute process. SOFT TISSUES/SKULL: No scalp hematoma or skull fracture. PARANASAL SINUSES/MASTOID AIR CELLS: Normal as visualized. IMPRESSION: 1. No acute intracranial process. 2. Stable small chronic lacunar type infarct within the periventricular white matter of the right fro ntal lobe. Signer Name: Can Renteria MD Signed: 11/03/2021 2:20 AM Workstation Name: [id number]
--- NOTE | 2021-11-03 09:47 | Event Note ---
ED Screening Note ED Screening Note: Patient Status: Emergency Emergency Provider: RAHEEM JOSEPH Date: 05/08/21 21:30 Initialization Date: 05/08/21 23:04 Date: 05/08/21 Patient comes in for dizziness and weakness for 1 day Also left sided headache Patient was reevaluated at 9 PM Patient was supposed to have been admitted for rule out CVA Telemetry neurology recommendations noted. As per telemetry neurology--NIHSS score was only 1. Recommended MRI with impression of acute ischemic stroke which does not correlate with my findings of a normal neuro exam and no stroke except for uncontrolled blood pressure and dizziness. Patient able to walk without any difficulty. No ataxia. On examination her neurological exam was normal. Patient able to walk and move all 4 extremities. CTA head CTA neck and CT head are all normal. Labs are normal. Blood pressure was slightly high at 140/96. Impression Uncontrolled hypertension Vertigo Patient being discharged on valsartan 160 twice a day and Coreg 6.25 twice a day Also aspirin and Plavix. Follow-up with PCP. Exercise on a regular basis. P2 LEFT POSTERIOR CEREBRRAL ARTERY STENOSIS > 50 % WAS TO BE ADMITTED THEN DC BY MARIE NOW WITH R SIDE WEAKNESS; RESOLVED SINCE COMING TO ER VISUAL DISTURBANCE ON EXAM This initial assessment/diagnostic orders/clinical plan/treatment(s) is/are subject to change based on patients health status, clinical progression and re- assessment by fellow clinical providers in the ED. Further treatment and workup at subsequent clinical providers discretion. Patient/guardian urged not to elope from the ED as their condition may be serious if not clinically assessed and managed. Initial orders include:
[2021-11-03] MEDS ORDERED: ASPIRIN 325 MG TAB PO ONE (10:08)
[2021-11-03] MEDS ORDERED: KETOROLAC 30 MG/1 ML INJ IV ONE (10:09)
[2021-11-03] MEDS ORDERED: PROCHLORPERAZINE EDISYLATE 10 MG/2 ML VIAL IV ONE (10:09)
[2021-11-03] MEDS ORDERED: MAGNESIUM SULFATE 2 GM/50 ML BAG IV ONE (10:10)
--- NOTE | 2021-11-03 10:11 | Emergency Department Report ---
Blank Doc - Documentation Documentation: [facility] Consult Note # Demographics Consult Type: Acute Stroke Level 2 (4.5-24 hrs) Patient Location: Emergency Room First Name: Geovanna Last Name: Ngoc Date of : 1975 Age: 46 Gender: Female Facility: [facility] Time of Initial Page ( Time): 11/03/2021, 09:56 Time of Return Call ( Time): 11/03/2021, 09:57 # HPI History: 46 yo woman who presented last night after waking up with severe headache, noting worst headache in the last several months. At the time she had right sided numbness/tingling, mild weakness. ER doctor noted possible visual field deficit. On prior ER admission she was noted to have p2 near occlusion, was instructed to follow up as outpatient. . Was to be on aspirin/plavix. # Scores Time of exam and NIHSS ( Time): 11/03/2021, 10:05 Level of Consciousness 1a: [0] = Alert; keenly responsive LOC Questions 1b: [0] = Answers both questions correctly LOC Commands 1c: [0] = Performs both tasks correctly Best Gaze 2: [0] = Normal Visual 3: [2] = Complete hemianopia Facial Palsy 4: [0] = Normal symmetrical movements Motor Arm Left 5a: [0] = No drift Motor Arm Right 5b: [0] = No drift Motor Leg Left 6a: [0] = No drift Motor Leg Right 6b: [0] = No drift Limb Ataxia 7: [0] = Absent Sensory 8: [1] = Ajnu-qf-mjyfuyse sensory loss Best Language 9: [0] = No aphasia Dysarthria 10: [0] = Normal Extinction and Inattention 11: [0] = No abnormality NIHSS Total: 3 # Data Head CT: no bleed Radiology read with stable lacunar infarction # Assessment Impression: suspect acute ischemic stroke vs complex migraine. # Plan Thrombolytic/Intervention: NOT IV Thrombolysis or IA Intervention candidate Thrombolytic Exclusion: > 4.5 hours Intraarterial Exclusion: no large vessel occlusion (LVO) Target Blood Pressure: SBP < 180 Labs: CBC comprehensive metabolic panel lipid panel troponin TSH urine drug screen ua Imaging: (urgency: STAT): CT Angiogram Head and CT Angiogram Neck AND call back with results if abnormal Imaging: (urgency: routine): MRI Brain without contrast Diagnostic Test: echo with bubble study Therapy/Evaluation: speech/swallow consultation Medication: aspirin 325 mg daily clopidogrel (Plavix) 75 mg daily DVT Prophylaxis: heparin 5000 units subcutaneously q 12 hours Other: If patient has any neurological deterioration please call me back immediately I have discussed my recommendations with the referring provider Additional Recommendations: Admit for stroke work up Disposition: admit # Logistics Telemedicine: Interactive 2 way audio and visual telecommunication technology was utilized during this visit # Demographics First Name: Geovanna Last Name: [facility] Facility: [facility]
--- NOTE | 2021-11-03 10:12 | Emergency Department Report ---
<BRI HUTCHISON - Last Filed: 11/03/21 15:09> ED Neuro Deficit HPI - General Chief Complaint: Headache Stated Complaint: RT SIDE NUMBNESS,BLURRED VISION,VOMITING Time Seen by Provider: 11/03/21 08:16 - Related Data Home Medications: Previous Rx's Medication Instructions Recorded Last Taken Type Albuterol Mdi (or & Nicu Only) 2 puff IH QID PRN #1 inhalation 02/18/16 Unknown Rx [ProAir HFA Inhaler] Benzonatate [Tessalon Perles] 100 mg PO Q8HR #14 capsule 02/18/16 Unknown Rx Cyclobenzaprine HCl [Flexeril 5 MG 5 mg PO Q8HR PRN #10 tab 02/18/16 Unknown Rx TAB] levoFLOXacin [Levaquin TAB] 500 mg PO QDAY #10 tablet 02/18/16 Unknown Rx Aspirin EC [Ecotrin] 325 mg PO QDAY #100 tablet. 05/08/21 Unknown Rx Clopidogrel [Plavix] 75 mg PO QDAY #30 tablet 05/08/21 Unknown Rx Meclizine [Antivert] 12.5 mg PO Q8H PRN #20 05/08/21 Unknown Rx Valsartan [Diovan] 160 mg PO Q12H #60 tablet 05/08/21 Unknown Rx carvediloL [Coreg] 6.25 mg PO BID #60 tablet 05/08/21 Unknown Rx Allergies/Adverse Reactions: Allergies Allergy/AdvReac Type Severity Reaction Status Date / Time diclofenac Allergy Hives Verified 05/08/21 09:29 Penicillins AdvReac Hives Verified 05/08/21 09:19 ED Past Medical Hx - Medications Home Medications: Home Medications Medication Instructions Recorded Confirmed Last Taken Type Albuterol Mdi (or & Nicu Only) 2 puff IH QID PRN #1 inhalation 02/18/16 05/08/21 Unknown Rx [ProAir HFA Inhaler] Benzonatate [Tessalon Perles] 100 mg PO Q8HR #14 capsule 02/18/16 05/08/21 Unknown Rx Cyclobenzaprine HCl [Flexeril 5 MG 5 mg PO Q8HR PRN #10 tab 02/18/16 05/08/21 Unknown Rx TAB] levoFLOXacin [Levaquin TAB] 500 mg PO QDAY #10 tablet 02/18/16 05/08/21 Unknown Rx Aspirin EC [Ecotrin] 325 mg PO QDAY #100 tablet. 05/08/21 Unknown Rx Clopidogrel [Plavix] 75 mg PO QDAY #30 tablet 05/08/21 Unknown Rx Meclizine [Antivert] 12.5 mg PO Q8H PRN #20 05/08/21 Unknown Rx Valsartan [Diovan] 160 mg PO Q12H #60 tablet 05/08/21 Unknown Rx carvediloL [Coreg] 6.25 mg PO BID #60 tablet 05/08/21 Unknown Rx ED Course - Consultations Consultation #1: 11/03/21 15:09 Case to be discussed with Dr. Oakley. Antiplatelet therapy recommended. Heparin drip was not recommended at this time. Recommends to consult inpatient neurologist during inpatient stay for further management advice - Lab Data Result diagrams: 11/03/21 10:10 11/03/21 10:10 ED Disposition Clinical Impression: Neurological deficit present Disposition: ADMITTED INPATIENT Condition: Stable Referrals: PRIMARY CARE, [Primary Care Provider] - 3-5 Days <JENNY TROY - Last Filed: 11/03/21 15:16> ED Neuro Deficit HPI - General Source: patient Mode of arrival: Wheelchair Limitations: No Limitations - History of Present Illness Initial Comments: 46 yo AA female comes to ER last night at approx MN after waking at 2200 with a severe headache. pt denies fall/trauma denies cp or sob denies fever or chills She had at that time right side weakness and nausea. Her mother drove her to ER She was triaged and CT scan ordered at 0100 Pt seen by current ANA this AM when she arrived in fast track she had visual field deficit, no motor weakness but did have a change in sensation to the right side. She could not feel the same on the right side of her body as the left. pt tearful she was also noted to be poor informant with regard to details of her medical history and meds- seemed to have difficulty with memory more so than with word finding pt states she was her normal self last night when she went to sleep. She can not tell me the exact time but it was dark so approx [address] Hutchison 1011 neuro consult completed- recs obtained HOME RX ASA PLAVIX VALSARTAN COREG LMP over 1 year ago -: Sudden Location: right face, right arm, right leg Presenting Symptoms: Present: Weak/Paralyzed One Side, Blurred/Loss of Vision History of same: Yes Place: home Severity: mild Quality: weak Improves With: none Worsens With: none On Anticoagulants: Yes Context: sudden onset Associated Symptoms: denies other symptoms, confusion, headaches, vertigo, weakness. denies: chest pain, cough, diaphoresis, fever/chills, loss of appetite, malise, nausea/vomiting, seizures, shortness of breath, syncope Treatments Prior to Arrival: none ED Review of Systems ROS: Stated complaint: RT SIDE NUMBNESS,BLURRED VISION,VOMITING Other details as noted in HPI Comment: All other systems reviewed and negative ED Past Medical Hx - Past Medical History Previous Medical History?: Yes Hx Hypertension: Yes Hx CVA: Yes Hx Headaches / Migraines: Yes Additional medical history: bronchitis-- veretigo - Surgical History Past Surgical History?: Yes - Family History Family history: no significant - Social History Smoking Status: Current Every Day Smoker Substance Use Type: Alcohol ED Neuro Physical Exam - General Limitations: No Limitations General appearance: alert Suspected Stroke: Yes - Head Head exam: Present: normocephalic - Eye Eye exam: Present: other - ENT ENT exam: Present: mucous membranes moist - Neck Neck exam: Present: normal inspection - Respiratory Respiratory exam: Present: normal lung sounds bilaterally - Cardiovascular Cardiovascular Exam: Present: regular rate - GI/Abdominal GI/Abdominal exam: Present: soft - Rectal Rectal exam: Present: deferred - Extremities Exam Extremities exam: Present: other - Back Exam Back exam: Present: normal inspection - Neurological Exam Neurological exam: Present: alert - NIHSS Assessment Interval: Baseline 1a. Level of Consciousness: alert/keenly responsive 1b. LOC Questions: answers both correctly 1c. LOC Commands: performs tasks correctly 2. Best Gaze: corrects with occulocephalic reflex 3. Visual: no visual loss 4. Facial Palsy: normal symmetrical movement 5b. Motor Arm Right: no drift 5a. Motor Arm Left: no drift 6a. Motor Leg Left: no drift 6b. Motor Leg Right: no drift 7. Limb Ataxia: absent 8. Sensory: mild/moderate sensory loss 9. Best Language: no aphasia 10. Dysarthria: normal 11. Extinction/Inattention: no abnormality Total Score: 2 Stroke Severity: Minor Stroke - Psychiatric Psychiatric exam: Present: depressed - Skin Skin exam: Present: warm, dry ED Course Vital Signs 11/03/21 11/03/21 11/03/21 00:47 10:54 11:00 Temperature 98.9 F Pulse Rate 97 H Respiratory 18 Rate Blood Pressure 139/96 139/88 O2 Sat by Pulse 97 98 99 Oximetry 11/03/21 11/03/21 11/03/21 11:16 11:30 11:46 Temperature Pulse Rate Respiratory Rate Blood Pressure 143/84 138/84 140/93 O2 Sat by Pulse 99 99 98 Oximetry 11/03/21 11/03/21 11/03/21 12:00 12:20 12:30 Temperature Pulse Rate Respiratory Rate Blood Pressure 138/84 139/82 139/82 O2 Sat by Pulse 98 98 100 Oximetry 11/03/21 11/03/21 11/03/21 12:46 13:00 13:16 Temperature Pulse Rate Respiratory Rate Blood Pressure 139/82 140/93 139/82 O2 Sat by Pulse 100 99 100 Oximetry - Reevaluation(s) Reevaluation #1: 11/03/21 1350 CTA head and neck discussed with neuro - they recommend referral to higher level of care for endovascular evaluation [address] Oakley at [facility] not a candidate for enoovascular procedure given time frame lapse between onset of symptoms. his direct number is [phone] Pagan paged x 3- Dr Hutchison ultimately staffed with him Reevaluation #2: 11/03/21 15:16 Dr Hutchison has called [facility] here to care for pt dual antiplt discussed with Dr Vann - Lab Data Result diagrams: 11/03/21 10:10 11/03/21 10:10 Lab Results 11/03/21 11/03/21 11/03/21 Range/Units 10:10 10:10 10:10 WBC 5.7 (4.5-11.0) K/mm3 RBC 4.71 (3.65-5.03) M/mm3 Hgb 14.9 H (10.1-14.3) gm/dl Hct 41.8 (30.3-42.9) % MCV 89 (79-97) fl MCH 32 (28-32) pg MCHC 36 H (30-34) % RDW 15.1 (13.2-15.2) % Plt Count 281 (140-440) K/mm3 PT 12.4 (12.2-14.9) Sec. INR 0.82 L (0.87-1.13) APTT 27.6 (24.2-36.6) Sec. Sodium 135 L (137-145) mmol/L Potassium 5.5 H (3.6-5.0) mmol/L Chloride 95.3 L (98-107) mmol/L Carbon Dioxide 26 (22-30) mmol/L Anion Gap 19 mmol/L BUN 12 (7-17) mg/dL Creatinine 1.0 (0.6-1.2) mg/dL Estimated GFR > 60 ml/min BUN/Creatinine Ratio 12 % Glucose 117 H (65-100) mg/dL Calcium 9.3 (8.4-10.2) mg/dL Phosphorus 4.30 (2.5-4.5) mg/dL Magnesium 1.90 (1.7-2.3) mg/dL Total Bilirubin 0.30 (0.1-1.2) mg/dL AST 28 (5-40) units/L ALT 19 (7-56) units/L Alkaline Phosphatase 63 (35-129) units/L Troponin T (0.00-0.029) ng/mL Total Protein 7.5 (6.3-8.2) g/dL Albumin 4.3 (3.9-5) g/dL Albumin/Globulin Ratio 1.3 % Triglycerides (2-149) mg/dL Cholesterol (50-199) mg/dL LDL Cholesterol Direct (50-130) mg/dL HDL Cholesterol (40-59) mg/dL Cholesterol/HDL Ratio % TSH (0.270-4.200) mlU/mL 11/03/21 11/03/21 Range/Units 10:21 10:21 WBC (4.5-11.0) K/mm3 RBC (3.65-5.03) M/mm3 Hgb (10.1-14.3) gm/dl Hct (30.3-42.9) % MCV (79-97) fl MCH (28-32) pg MCHC (30-34) % RDW (13.2-15.2) % Plt Count (140-440) K/mm3 PT (12.2-14.9) Sec. INR (0.87-1.13) APTT (24.2-36.6) Sec. Sodium (137-145) mmol/L Potassium (3.6-5.0) mmol/L Chloride (98-107) mmol/L Carbon Dioxide (22-30) mmol/L Anion Gap mmol/L BUN (7-17) mg/dL Creatinine (0.6-1.2) mg/dL Estimated GFR ml/min BUN/Creatinine Ratio % Glucose (65-100) mg/dL Calcium (8.4-10.2) mg/dL Phosphorus (2.5-4.5) mg/dL Magnesium (1.7-2.3) mg/dL Total Bilirubin (0.1-1.2) mg/dL AST (5-40) units/L ALT (7-56) units/L Alkaline Phosphatase (35-129) units/L Troponin T < 0.010 (0.00-0.029) ng/mL Total Protein (6.3-8.2) g/dL Albumin (3.9-5) g/dL Albumin/Globulin Ratio % Triglycerides 65 (2-149) mg/dL Cholesterol 221 H (50-199) mg/dL LDL Cholesterol Direct 129 (50-130) mg/dL HDL Cholesterol 79 H (40-59) mg/dL Cholesterol/HDL Ratio 2.79 % TSH 0.629 (0.270-4.200) mlU/mL - EKG Data -: EKG Interpreted by Me Interpretation: other - Radiology Data Radiology results: report reviewed, image reviewed see reports - Medical Decision Making Labs 11/03/21 11/03/21 11/03/21 10:10 10:10 10:10 WBC 5.7 RBC 4.71 Hgb 14.9 H Hct 41.8 MCV 89 MCH 32 MCHC 36 H RDW 15.1 Plt Count 281 PT 12.4 INR 0.82 L APTT 27.6 Sodium 135 L Potassium 5.5 H Chloride 95.3 L Carbon Dioxide 26 Anion Gap 19 BUN 12 Creatinine 1.0 Estimated GFR > 60 BUN/Creatinine Ratio 12 Glucose 117 H Calcium 9.3 Phosphorus 4.30 Magnesium 1.90 Total Bilirubin 0.30 AST 28 ALT 19 Alkaline Phosphatase 63 Troponin T Total Protein 7.5 Albumin 4.3 Albumin/Globulin Ratio 1.3 Triglycerides Cholesterol LDL Cholesterol Direct HDL Cholesterol Cholesterol/HDL Ratio TSH 11/03/21 11/03/21 10:21 10:21 WBC RBC Hgb Hct MCV MCH MCHC RDW Plt Count PT INR APTT Sodium Potassium Chloride Carbon Dioxide Anion Gap BUN Creatinine Estimated GFR BUN/Creatinine Ratio Glucose Calcium Phosphorus Magnesium Total Bilirubin AST ALT Alkaline Phosphatase Troponin T < 0.010 Total Protein Albumin Albumin/Globulin Ratio Triglycerides 65 Cholesterol 221 H LDL Cholesterol Direct 129 HDL Cholesterol 79 H Cholesterol/HDL Ratio 2.79 TSH 0.629 Vital Signs 11/03/21 11/03/21 11/03/21 00:47 10:54 11:00 Temperature 98.9 F Pulse Rate 97 H Respiratory 18 Rate Blood Pressure 139/96 139/88 O2 Sat by Pulse 97 98 99 Oximetry 11/03/21 11/03/21 11/03/21 11:16 11:30 11:46 Temperature Pulse Rate Respiratory Rate Blood Pressure 143/84 138/84 140/93 O2 Sat by Pulse 99 99 98 Oximetry 11/03/21 11/03/21 11/03/21 12:00 12:20 12:30 Temperature Pulse Rate Respiratory Rate Blood Pressure 138/84 139/82 139/82 O2 Sat by Pulse 98 98 100 Oximetry 11/03/21 11/03/21 11/03/21 12:46 13:00 13:16 Temperature Pulse Rate Respiratory Rate Blood Pressure 139/82 140/93 139/82 O2 Sat by Pulse 100 99 100 Oximetry CTH noted lab noted CTA noted given asa/plavix also medicated with compazine/ toradol and mg for headache 11/03/21 1350 CTA head and neck discussed with neuro -Dr Arriaga- he recommends referral to higher level of care for endovascular evaluation [address] Oakley at [facility] not a candidate for enoovascular procedure given time frame lapse between onset of symptoms. his direct number is [phone] Pagan paged x 3- Dr Hutchison ultimately staffed with him 1423 ekg completed per order at 0946 Dr Hutchison updated on [facility] recommendations. Pt to be admitted for further evaluation and MRI per neuro recs. Pt updated on plan of care HMS to admit - Differential Diagnosis ro cva/tia; complex migraine - Core Measures Measure Exclusions: not indicated - Thrombolytic Inclusion/Exclusion Thrombolytic Exclusion Criteria: Symptom Onset > 3 Hours Thrombolytic Inclusion Criteria: NIH Stroke Scale Deficit, Negative CT Scan for ICH, Age 18 or Older, Glucose of 50-400mg/dl Critical care attestation.: If time is entered above; I have spent that time in minutes in the direct care of this critically ill patient, excluding procedure time. ED Disposition Is pt being admited?: Yes Does the pt Need Aspirin: No Time of Disposition: 14:15
[2021-11-03] MEDS ORDERED: CLOPIDOGREL 75 MG TAB PO ONE (10:14)
[2021-11-03 10:59] LABS: Hematocrit 41.8 % (30.3-42.9); Hemoglobin 14.9 gm/dl (10.1-14.3); Mean Corpuscular HGB Conc 36 % (30-34); Mean Corpuscular Volume 89 fl (79-97); Platelet Count 281 K/mm3 (140-440); Red Blood Count 4.71 M/mm3 (3.65-5.03); Red Cell Distribution Width 15.1 % (13.2-15.2)
[2021-11-03 11:10] LABS: INR 0.82 (0.87-1.13)
[2021-11-03 11:11] LABS: Partial Thromboplastin Time 27.6 Sec. (24.2-36.6)
[2021-11-03 11:21] LABS: Alanine Aminotransferase 19 units/L (7-56); Albumin 4.3 g/dL (3.9-5); BUN/Creatinine Ratio 12; Blood Urea Nitrogen 12 mg/dL (7-17); Calcium 9.3 mg/dL (8.4-10.2); Hemolysis Index 254
[2021-11-03 11:23] LABS: Chol/HDL Ratio 2.79 %; HDL Cholesterol 79 mg/dL (40-59); LDL Cholesterol,Direct 129 mg/dL (50-130)
--- NOTE | 2021-11-03 13:10 | Cat Scan Report ---
CT angio neck INDICATION / CLINICAL INFORMATION: 46 years Female; VISUAL DISTRUBAMCE. TECHNIQUE: Thin cut axial images obtained through the head during IV bolus contrast administration. S agittal, coronal, and 3 plane MIP reconstructions performed by the technologist. NASCET type criteria used evaluate stenoses. All CT scans at this location are performed using CT dose reduction for ALAR A by means of automated exposure control. COMPARISON: None available. FINDINGS: CAROTID ARTERIES: There is no significant stenosis involving cervical carotid arteries by NASCET crit eria. The carotid bifurcations are widely patent at. VERTEBRAL ARTERIES: The left vertebral artery appears to arise directly from the aortic arch with fin dings indicative of common origin with the left subclavian artery at. Otherwise, the cervical vertebr al arteries appear to demonstrate appropriate caliber without significant focal stenosis. ARCH: There is no significant narrowing involving origins of the arch vessels. ADDITIONAL FINDINGS: Remainder of the surrounding soft tissues are grossly normal. IMPRESSION: There is no CTA evidence of significant stenosis involving cervical carotid or vertebral arteries by NASCET to criteria. Signer Name: Shant Torres MD Signed: 11/03/2021 1:06 PM Workstation Name: [id number]
--- NOTE | 2021-11-03 13:21 | Cat Scan Report ---
CT angio head INDICATION / CLINICAL INFORMATION: 46 years Female; VISUAL DISTRUBAMCE. TECHNIQUE: Thin cut axial images obtained through the head during IV bolus contrast administration. S agittal, coronal, and 3 plane MIP reconstructions performed by the technologist. NASCET type criteria used evaluate stenoses. Automated exposure control utilized for radiation reduction purposes. . COMPARISON: 05/08/2021 FINDINGS: INTERNAL CAROTID ARTERIES: No significant narrowing appreciated. VERTEBROBASILAR SYSTEM: No significant narrowing appreciated. DISTAL BRANCHES: Distal branches of the anterior, middle, and posterior cerebral arteries are fairly symmetric in appearance and number. Where there was moderate to high-grade narrowing in the P2 segment of the left WIND FIELD MANAGER, there is now occl usion. Thrombus in this region certainly expected. There are subtle loss of rubalcava/white differentiatio n in the cuneus on the left. ANEURYSM: None identified. ADDITIONAL FINDINGS: Remainder of the surrounding soft tissues are grossly normal. IMPRESSION: 1. Large vessel occlusion seen in the P2 region of the left WIND FIELD MANAGER, as described above. CRITICAL RESULT: Exam Completed (SUPERVISOR PIG MACHINE/CDT): 11/03/2021 12:02 PM Exam Reviewed (SUPERVISOR PIG MACHINE/CDT): 12:05 PM Time of Communication (SUPERVISOR PIG MACHINE/CDT): 12:16 PM Licensed Practitioner Receiving Report: Dr. Yosef Wesley Information confirmed: Yes. Signer Name: Ervin Galaviz MD, III Signed: 11/03/2021 1:17 PM Workstation Name: [id number] [email or web address]
--- NOTE | 2021-11-03 16:05 | History and Physical Report ---
History of Present Illness Chief complaint: I feel weak on my right side History of present illness: 46 YO Female with Obesity, HTN, CVA on DAPT, Migraine POLO, Nicotine Dependence, Medication Noncompliance presents to ED for evaluation. Patient reports "I feel weak on the right side". Patient dates that she was in her usual state of health at bedtime at approximate 2100 hrs. Patient reports awakening from sleep today and feeling right-sided weakness, headache, and blurred vision. Patient transported to [facility] via private vehicle for further care and evaluation of the aforementioned symptoms. The patient was seen and evaluated in the emergency department. All lab and imaging studies reviewed. Patient remained CT scan of the brain and was found to have left SAFETY AND HEALTH CONSULTANT P2 occlusion. Teleneurology consulted. [facility] neuro dental appliance repairer consulted. Patient deemed not a candidate for transfer and neuro intervention. Patient admitted to medical floor and initiated on CVA protocol. Patient initiated on dual antiplatelet therapy. Therapeutic anticoagulation not recommended. Patient has fever, chills, chest pain, palpitation, adductive cough, skin rash, recent contact, trauma, known exposure to COVID-19. No prior admission for review. All medication listed at time of admission has been reconciled. Advanced care planning conducted in ED. Past History Past Medical History: hypertension, stroke, other (See HPI) Past Surgical History: No surgical history, Other (Reviewed) Social history: single, smoking. denies: alcohol abuse, prescription drug abuse Family history: hypertension Medications and Allergies Allergies Allergy/AdvReac Type Severity Reaction Status Date / Time diclofenac Allergy Hives Verified 05/08/21 09:29 Penicillins AdvReac Hives Verified 05/08/21 09:19 Home Medications Medication Instructions Recorded Confirmed Last Taken Type Albuterol Mdi (or & Nicu Only) 2 puff IH QID PRN #1 inhalation 02/18/16 05/08/21 Unknown Rx [ProAir HFA Inhaler] Benzonatate [Tessalon Perles] 100 mg PO Q8HR #14 capsule 02/18/16 05/08/21 Unknown Rx Cyclobenzaprine HCl [Flexeril 5 MG 5 mg PO Q8HR PRN #10 tab 02/18/16 05/08/21 Unknown Rx TAB] levoFLOXacin [Levaquin TAB] 500 mg PO QDAY #10 tablet 02/18/16 05/08/21 Unknown Rx Aspirin EC [Ecotrin] 325 mg PO QDAY #100 tablet. 05/08/21 Unknown Rx Clopidogrel [Plavix] 75 mg PO QDAY #30 tablet 05/08/21 Unknown Rx Meclizine [Antivert] 12.5 mg PO Q8H PRN #20 05/08/21 Unknown Rx Valsartan [Diovan] 160 mg PO Q12H #60 tablet 05/08/21 Unknown Rx carvediloL [Coreg] 6.25 mg PO BID #60 tablet 05/08/21 Unknown Rx Review of Systems Constitutional: no weight loss, no weight gain, no fever Ears, nose, mouth and throat: no ear pain, no tinnitis, no decreased hearing Breasts: no change in shape, no swelling, no mass Cardiovascular: no chest pain, no orthopnea, no palpitations, no rapid/irregular heart beat, no edema Respiratory: no cough, no excessive sputum Gastrointestinal: no abdominal pain, no vomiting, no diarrhea Genitourinary Female: no pelvic pain, no flank pain, no dysuria, no urinary frequency, no urgency Rectal: no pain, no incontinence, no bleeding Musculoskeletal: no neck stiffness, no arm numbness/tingling, no leg numbness/tingling Integumentary: no rash, no pruritis, no sores, no jaundice Neurological: weakness, headaches, no head injury, no paralysis, no parathesias, no tingling, no seizures, no tremors Psychiatric: no anxiety, no memory loss, no sleep disturbances Endocrine: no heat intolerance, no excessive thirst, no polydipsia Hematologic/Lymphatic: no easy bruising, no easy bleeding, no lymphadenopathy Allergic/Immunologic: no urticaria, no allergic rhinitis, no wheezing, no persistent infections, no anaphylaxis Exam - Constitutional Vitals: Temp Pulse Resp BP Pulse Ox 98.9 F 97 H 18 139/82 100 11/03/21 00:47 11/03/21 00:47 11/03/21 00:47 11/03/21 13:16 11/03/21 13:16 General appearance: Present: mild distress - EENT Eyes: Present: PERRL ENT: hearing intact, clear oral mucosa - Neck Neck: Present: supple, normal ROM - Respiratory Respiratory effort: normal Respiratory: bilateral: CTA - Cardiovascular Heart Sounds: Present: S1 & S2. Absent: rub, click - Extremities Extremities: pulses symmetrical, No edema Peripheral Pulses: within normal limits - Abdominal General gastrointestinal: Present: soft, non-tender, non-distended, normal bowel sounds Female genitourinary: Present: normal - Integumentary Integumentary: Present: clear, warm, dry - Musculoskeletal Musculoskeletal: gait normal, strength equal bilaterally - Psychiatric Psychiatric: appropriate mood/affect, intact judgment & insight - Neurologic Neurologic: CNII-XII intact, moves all extremities HEART Score - HEART Score Troponin: Troponin T < 0.010 ng/mL (0.00-0.029) 11/03/21 10:21 Results - Labs CBC & Chem 7: 11/03/21 10:10 11/03/21 10:10 Labs: Abnormal lab results 11/03/21 11/03/21 11/03/21 Range/Units 10:10 10:10 10:10 Hgb 14.9 H (10.1-14.3) gm/dl MCHC 36 H (30-34) % INR 0.82 L (0.87-1.13) Sodium 135 L (137-145) mmol/L Potassium 5.5 H (3.6-5.0) mmol/L Chloride 95.3 L (98-107) mmol/L Glucose 117 H (65-100) mg/dL Cholesterol (50-199) mg/dL HDL Cholesterol (40-59) mg/dL 11/03/21 Range/Units 10:21 Hgb (10.1-14.3) gm/dl MCHC (30-34) % INR (0.87-1.13) Sodium (137-145) mmol/L Potassium (3.6-5.0) mmol/L Chloride (98-107) mmol/L Glucose (65-100) mg/dL Cholesterol 221 H (50-199) mg/dL HDL Cholesterol 79 H (40-59) mg/dL Assessment and Plan - Patient Problems (1) CVA (cerebral vascular accident) Current Visit: Yes Status: Acute Qualifiers: Precerebral and cerebral artery: posterior cerebral artery Laterality of affected vessel: left Plan to address problem: CVA protocol: CT head, CTA neck, carotid Doppler, echocardiogram, dual antiplatelet therapy, telemetry neurology consulted, neuro dental appliance repairer at [facility] consulted, blood pressure control, continue medical management, perm issive hypertension overnight. Physical therapy consulted, Occupational Therapy consulted, speech therapy consulted. (2) Obesity (BMI 30.0-34.9) Current Visit: Yes Status: Acute Plan to address problem: Balanced diet, increase physical activity at discharge. (3) Nicotine dependence Current Visit: Yes Status: Acute Qualifiers: Nicotine product type: cigarettes Substance use status: in withdrawal Qualified Code(s): F17.213 - Nicotine dependence, cigarettes, with withdrawal Plan to address problem: Smoking cessation counseled, supportive care, behavior change counseling, +15 minutes. (4) Hypertension Current Visit: Yes Status: Acute Qualifiers: Hypertension type: primary hypertension Qualified Code(s): I10 - Essential (primary) hypertension Plan to address problem: Monitor blood pressure every shift, continue medical management, permissive hypertension overnight. (5) Noncompliance with medication regimen Current Visit: Yes Status: Acute Plan to address problem: Patient counseled. (6) DVT prophylaxis Current Visit: Yes Status: Acute Plan to address problem: SCD to bilateral lower extremities while in bed (7) Advance care planning Current Visit: Yes Status: Acute Plan to address problem: Disease education conducted, care plan discussed, diagnoses discussed, prognosis discussed, patient is full code. Patient knowledges understanding agreement with care plan, +30 minutes. (8) Preventative health care Current Visit: Yes Status: Acute Plan to address problem: Patient counseled regarding meal planning, balanced diet, weight reduction, risk factor reduction, outpatient follow-up with primary care physician for all age and risk factor appropriate screening test. Outpatient follow-up with registered pharmacist for all age and risk factor proper screening test. +30 minutes.
[2021-11-03] MEDS ORDERED: ONDANSETRON 4 MG/2 ML INJ IV PRN (17:00)
[2021-11-03] MEDS ORDERED: METOCLOPRAMIDE 10 MG TAB PO PRN (17:00)
[2021-11-03] MEDS ORDERED: HYDROmorphone 0.5 MG/0.5 ML INJ IV PRN (17:00)
[2021-11-03] MEDS ORDERED: MAGNESIUM HYDROXIDE (MOM) ORAL LIQD UDC PO PRN (17:00)
[2021-11-03] MEDS ORDERED: oxyCODONE /ACETAMINOPHEN 5-325MG TAB PO PRN (17:00)
[2021-11-03] MEDS ORDERED: PROMETHAZINE 25 MG RECT SUPP PR PRN (17:00)
--- NOTE | 2021-11-03 17:10 | Vascular Lab Report ---
DUPLEX DOPPLER ULTRASOUND CAROTID, BILATERAL INDICATION / CLINICAL INFORMATION: stroke. COMPARISON: None available. FINDINGS: RIGHT CAROTID: - PLAQUE ESTIMATE (%): < 50% - CCA velocity: 93.8 cm/sec. - ICA peak systolic velocity: 91.6 cm/sec. - ICA/CCA PSV Ratio: 0.98 Right Vertebral Artery: Antegrade flow. LEFT CAROTID: - PLAQUE ESTIMATE: < 50% - CCA velocity: 56.2 cm/sec. - ICA peak systolic velocity: 105.7 cm/sec. - ICA/CCA PSV Ratio: 1.88 Left Vertebral Artery: Antegrade flow. IMPRESSION: 1. Right Internal Carotid Artery: Less than 50% diameter stenosis. 2. Left Internal Carotid Artery: Less than 50% diameter stenosis. Velocity criteria are extrapolated from diameter data as defined by the Society of Radiologists in Ul trasound Consensus Conference, Radiology 2003; 229;340-346. NO STENOSIS (NORMAL) * Plaque = none; ICA PSV < 125 cm/sec; ICA/CCA PSV Ratio < 2.0 <50% STENOSIS * Plaque < 50%; ICA PSV < 125 cm/sec; ICA/CCA PSV Ratio < 2.0 50-69% STENOSIS * Plaque > 50%; ICA PSV = 125-230 cm/sec; ICA/CCA PSV Ratio = 2.0-4.0 >70% BUT <100% STENOSIS * Plaque > 50%; ICA PSV > 230 cm/sec; ICA/CCA PSV Ratio > 4.0 NEAR OCCLUSION * Plaque = visible lumen; ICA PSV = high/low/none; ICA/CCA PSV Ratio = variable TOTAL OCCLUSION * Plaque = no lumen; ICA PSV = none; ICA/CCA PSV Ratio = N/A Signer Name: Justin Singh MD Signed: 11/03/2021 5:06 PM Workstation Name: [id number]
[2021-11-04] MEDS: CLOPIDOGREL 75 MG TAB PO SCH (10:19)
[2021-11-04] MEDS: ASPIRIN 325 MG TAB PO SCH (10:19)
[2021-11-04 15:21] LABS: Bilirubin,Urine NEG (Negative); Blood,Urine SM (Negative); Color,Urine Yellow (Yellow); Urobilinogen,Urine < 2 mg/dL (<2.0)
[2021-11-04 15:28] LABS: Amphetamine Screen,Urine Negative; Benzodiazepines Screen,Urine Negative; Cannabinoid Screen,Urine Negative; Cocaine Screen,Urine Negative; Methadone Screen,Urine Negative; Opiate Screen,Urine Negative
[2021-11-04 15:30] LABS: Amorphous Crystals,Urine Few; Mucus,Urine FEW /HPF
--- NOTE | 2021-11-04 18:09 | Progress Note ---
Assessment and Plan Assessment and plan: 46 YO Female with Obesity, HTN, possible CVA on DAPT, Migraine POLO, Nicotine Dependence presents to ED for evaluation. Patient reports "I feel weak on the right side". Patient dates that she was in her usual state of health at bedtime at approximate 2100 hrs. Patient reports awakening from sleep today and feeling right-sided weakness, headache, nausea/vomiting , memory impairment and blurred vision. However patient denies having the diagnosis of a CVA or frequent headaches or migraine. She presented with similar symptoms to this hospital few months ago.CT scan of the brain and was found to have left MANIFEST/ORDER ORGANIZER PRINT ORDERS P2 occlusion. Teleneurology consulted. [facility] neuro clay pigeon setter consulted. Patient deemed not a candidate for transfer and neuro intervention. Patient admitted to medical floor and initiated on CVA protocol. Patient initiaton dual antiplatelet therapy. Therapeutic anticoagulation not recommended. (1) rule out acute CVA (cerebral vascular accident) Current Visit: Yes Status: Acute Qualifiers: Precerebral and cerebral artery: posterior cerebral artery Laterality of affected vessel: left Plan to address problem: CVA protocol: CT head, CTA neck, carotid Doppler, echocardiogram, dual antiplatelet therapy, telemetry neurology consulted, neuro clay pigeon setter at [facility] consulted, blood pressure control, continue medical management, permissive hypertension overnight. Physical therapy consulted, Occupational Therapy consulted, speech therapy consulted. Patient was admitted with similar symptoms a few months ago. Her symptoms resolved after the previous admission, according to patient. She denies history of frequent headaches or having a diagnosis of migraine. No family history of migraine. She does not think she was given the diagnosis of CVA previously. She reports being compliant with DAPT. The recurrent neurological symptoms favor a diagnosis of a complex migraine. However, a complete stroke work-up being initiated and a teleneurology consulted/following. 11/04: Patient reports having headaches still but better, 4/10 currently, nausea and vomiting resolved. Vision still blurred but may be some better. Right side of face, right arm and right leg feel funny and weak. She also reports acute memory impairment and cannot recollect/remember things. She is fairly alert, anxious, cognitive/memory impairment appears to be acute causing her a poor historian and some disorientation, speech is otherwise clear and fluent, visual acuity is impaired bilaterally but no diplopia, may have a subtle right lower facial weakness, tongue protrudes in midline, strength in the right upper extremity 5/5 with a daily drift. [place]-uc-[id number] test normal. Strength in the right lower extremity 4/5 with drift. Gait not tested. (2) Obesity (BMI 30.0-34.9) Current Visit: Yes Status: Acute Plan to address problem: Balanced diet, increase physical activity at discharge. (3) Nicotine dependence Current Visit: Yes Status: Acute Qualifiers: Nicotine product type: cigarettes Substance use status: in withdrawal Qualified Code(s): F17.213 - Nicotine dependence, cigarettes, with withdrawal Plan to address problem: Smoking cessation counseled, supportive care, behavior change counseling, +15 minutes. (4) Hypertension Current Visit: Yes Status: Acute Qualifiers: Hypertension type: primary hypertension Qualified Code(s): I10 - Essential (primary) hypertension Plan to address problem: Monitor blood pressure every shift, continue medical management, permissive hypertension overnight. (5) compliance with medication regimen Current Visit: Yes Status: Acute Plan to address problem: Patient denies noncompliance (6) DVT prophylaxis Current Visit: Yes Status: Acute Plan to address problem: SCD to bilateral lower extremities while in bed (7) Advance care planning Current Visit: Yes Status: Acute Plan to address problem: Disease education conducted, care plan discussed, diagnoses discussed, prognosis discussed, patient is full code. Patient knowledges understanding agreement with care plan Discussed with the patient, her mother on phone and nursing staff. Disposition: Pending further improvement of symptoms and completion of stroke work-up. History Interval history: Patient reports having headaches still but better, 4/10 currently, nausea and vomiting resolved. Vision still blurred but may be some better. Right side of face, right arm and right leg feel funny and weak. She also reports acute memory impairment and cannot recollect/remember things. Hospitalist Physical - Constitutional Vitals: Temp Pulse Resp BP Pulse Ox 98.5 F 77 20 142/94 98 11/04/21 12:06 11/04/21 12:06 11/04/21 15:00 11/04/21 12:06 11/04/21 17:05 General appearance: Present: mild distress, other (Anxious) - EENT Eyes: Present: PERRL, EOM intact ENT: hearing intact, clear oral mucosa - Neck Neck: Present: supple - Respiratory Respiratory effort: normal Respiratory: bilateral: CTA - Cardiovascular Rhythm: regular - Extremities Extremities: No edema Peripheral Pulses: within normal limits - Abdominal General gastrointestinal: soft, non-tender - Integumentary Integumentary: Absent: rash - Psychiatric Psychiatric: other (Anxious) - Neurologic Neurologic: other (Fairly alert, anxious, cognitive/memory impairment appears to be acute causing her a poor historian and some disorientation, speech is otherwise clear and fluent, visual acuity is impaired bilaterally but no diplopia, may have a subtle right lower facial weakness, tongue protrudes in midline, streng) HEART Score - HEART Score Troponin: Troponin T < 0.010 ng/mL (0.00-0.029) 11/03/21 10:21 Results - Labs CBC & Chem 7: 11/03/21 10:10 11/03/21 10:10 Labs: Laboratory Last Values WBC 5.7 K/mm3 (4.5-11.0) 11/03/21 10:10 RBC 4.71 M/mm3 (3.65-5.03) 11/03/21 10:10 Hgb 14.9 gm/dl (10.1-14.3) H 11/03/21 10:10 Hct 41.8 % (30.3-42.9) 11/03/21 10:10 MCV 89 fl (79-97) 11/03/21 10:10 MCH 32 pg (28-32) 11/03/21 10:10 MCHC 36 % (30-34) H 11/03/21 10:10 RDW 15.1 % (13.2-15.2) 11/03/21 10:10 Plt Count 281 K/mm3 (140-440) 11/03/21 10:10 PT 12.4 Sec. (12.2-14.9) 11/03/21 10:10 INR 0.82 (0.87-1.13) L 11/03/21 10:10 APTT 27.6 Sec. (24.2-36.6) 11/03/21 10:10 Sodium 135 mmol/L (137-145) L 11/03/21 10:10 Potassium 5.5 mmol/L (3.6-5.0) H 11/03/21 10:10 Chloride 95.3 mmol/L (98-107) L 11/03/21 10:10 Carbon Dioxide 26 mmol/L (22-30) 11/03/21 10:10 Anion Gap 19 mmol/L 11/03/21 10:10 BUN 12 mg/dL (7-17) 11/03/21 10:10 Creatinine 1.0 mg/dL (0.6-1.2) 11/03/21 10:10 Estimated GFR > 60 ml/min 11/03/21 10:10 BUN/Creatinine Ratio 12 % 11/03/21 10:10 Glucose 117 mg/dL (65-100) H 11/03/21 10:10 Calcium 9.3 mg/dL (8.4-10.2) 11/03/21 10:10 Phosphorus 4.30 mg/dL (2.5-4.5) 11/03/21 10:10 Magnesium 1.90 mg/dL (1.7-2.3) 11/03/21 10:10 Total Bilirubin 0.30 mg/dL (0.1-1.2) 11/03/21 10:10 AST 28 units/L (5-40) 11/03/21 10:10 ALT 19 units/L (7-56) 11/03/21 10:10 Alkaline Phosphatase 63 units/L (35-129) 11/03/21 10:10 Troponin T < 0.010 ng/mL (0.00-0.029) 11/03/21 10:21 Total Protein 7.5 g/dL (6.3-8.2) 11/03/21 10:10 Albumin 4.3 g/dL (3.9-5) 11/03/21 10:10 Albumin/Globulin Ratio 1.3 % 11/03/21 10:10 Triglycerides 65 mg/dL (2-149) 11/03/21 10:21 Cholesterol 221 mg/dL (50-199) H 11/03/21 10:21 LDL Cholesterol Direct 129 mg/dL (50-130) 11/03/21 10:21 HDL Cholesterol 79 mg/dL (40-59) H 11/03/21 10:21 Cholesterol/HDL Ratio 2.79 % 11/03/21 10:21 TSH 0.629 mlU/mL (0.270-4.200) 11/03/21 10:21 Urine Color Yellow (Yellow) 11/03/21 14:10 Urine Turbidity Cloudy (Clear) 11/03/21 14:10 Urine pH 5.0 (5.0-7.0) 11/03/21 14:10 Ur Specific [place] 1.015 (1.003-1.030) 11/03/21 14:10 Urine Protein 30 mg/dl mg/dL (Negative) 11/03/21 14:10 Urine Glucose (UA) Neg mg/dL (Negative) 11/03/21 14:10 Urine Ketones Neg mg/dL (Negative) 11/03/21 14:10 Urine Blood Sm (Negative) 11/03/21 14:10 Urine Nitrite Neg (Negative) 11/03/21 14:10 Urine Bilirubin Neg (Negative) 11/03/21 14:10 Urine Urobilinogen < 2 mg/dL (<2.0) 11/03/21 14:10 Ur Leukocyte Esterase Tr (Negative) 11/03/21 14:10 Urine WBC (Auto) 13.0 /HPF (0.0-6.0) H 11/03/21 14:10 Urine RBC (Auto) 2.0 /HPF (0.0-6.0) 11/03/21 14:10 U Epithel Cells (Auto) 6.0 /HPF (0-13.0) 11/03/21 14:10 Amorphous Crystals Few 11/03/21 14:10 Urine Mucus Few /HPF 11/03/21 14:10 Urine Opiates Screen Negative 11/03/21 14:10 Urine Methadone Screen Negative 11/03/21 14:10 Ur Barbiturates Screen Negative 11/03/21 14:10 Ur Phencyclidine Scrn Negative 11/03/21 14:10 Ur Amphetamines Screen Negative 11/03/21 14:10 U Benzodiazepines Scrn Negative 11/03/21 14:10 Urine Cocaine Screen Negative 11/03/21 14:10 U Marijuana (THC) Screen Negative 11/03/21 14:10 Drugs of Abuse Note Disclamer 11/03/21 14:10 Evans/IV: Voiding Method Toilet Active Medications - Current Medications Current Medications: Generic Name Dose Route Start Last Admin Trade Name Freq PRN Reason Stop Dose Admin Acetaminophen 650 mg 11/03/21 17:00 Acetaminophen 325 Mg Tab PO Q4H PRN Pain, Mild (1-3) Aspirin 325 mg 11/04/21 10:00 11/04/21 10:19 Aspirin 325 Mg Tab PO 325 mg QDAY LEROY Administration Atorvastatin Calcium 40 mg 11/03/21 22:00 11/04/21 00:04 Atorvastatin 40 Mg Tab PO 40 mg QHS LEROY Administration Bisacodyl 10 mg 11/04/21 10:00 Bisacodyl 10 Mg Rect Supp PA QDAY PRN Constipation Clopidogrel Bisulfate 75 mg 11/04/21 10:00 11/04/21 10:19 Clopidogrel 75 Mg Tab PO 75 mg QDAY LEROY Administration Hydromorphone HCl 0.5 mg 11/03/21 17:00 Hydromorphone 0.5 Mg/0.5 Ml Inj IV Q23H PRN Pain , Severe (7-10) Magnesium Hydroxide 30 ml 11/03/21 17:00 Magnesium Hydroxide (Mom) Oral Liqd Udc PO Q4H PRN Constipation Metoclopramide HCl 10 mg 11/03/21 17:00 Metoclopramide 10 Mg Tab PO Q6H PRN Nausea And Vomiting Ondansetron HCl 4 mg 11/03/21 17:00 Ondansetron 4 Mg/2 Ml Inj IV Q8H PRN Nausea And Vomiting Oxycodone/Acetaminophen 1 tab 11/03/21 17:00 11/04/21 10:49 Oxycodone /Acetaminophen 5-325mg Tab PO 1 tab Q6H PRN Administration Pain, Moderate (4-6) Promethazine HCl 25 mg 11/03/21 17:00 Promethazine 25 Mg Rect Supp PA Q6H PRN Nausea And Vomiting Sodium Chloride 10 ml 11/03/21 17:00 Sodium Chloride 0.9% 10 Ml Flush Syringe IV PRN PRN LINE FLUSH
[2021-11-04] MEDS: ACETAMINOPHEN 325 MG TAB PO PRN (22:20)
[2021-11-05 05:20] LABS: Hematocrit 43.4 % (30.3-42.9); Hemoglobin 14.5 gm/dl (10.1-14.3); Mean Corpuscular HGB Conc 33 % (30-34); Mean Corpuscular Volume 91 fl (79-97); Platelet Count 250 K/mm3 (140-440); Red Blood Count 4.77 M/mm3 (3.65-5.03); Red Cell Distribution Width 15.4 % (13.2-15.2)
[2021-11-05 06:03] LABS: Alanine Aminotransferase 15 units/L (7-56); Albumin 4.3 g/dL (3.9-5); BUN/Creatinine Ratio 13; Blood Urea Nitrogen 14 mg/dL (7-17); Calcium 9.5 mg/dL (8.4-10.2); Hemolysis Index 9
[2021-11-05 06:06] LABS: Basophils % (Manual) 0 % (0.0-1.8); Total Cells Counted 100
[2021-11-05 06:07] LABS: Platelet Estimate Consistent w Auto
[2021-11-05] MEDS: CLOPIDOGREL 75 MG TAB PO SCH (10:16)
[2021-11-05] MEDS: ASPIRIN 325 MG TAB PO SCH (10:16)
--- NOTE | 2021-11-05 10:43 | Magnetic Resonance Report ---
MRI BRAIN WITHOUT AND WITH CONTRAST INDICATION / CLINICAL INFORMATION: Acute strokelike symptoms, LT SIDED NUMBNESS. TECHNIQUE: Multisequence, multiplanar images were obtained. Postcontrast imaging following 18 cc of Clariscan COMPARISON: CT head 11/03/2021 FINDINGS: CEREBRAL and CEREBELLAR HEMISPHERES: A large area of diffusion restriction is present throughout most of the left BALL ENDER distribution consistent with acute to subacute ischemic infarct. Focal subcentimeter area of diffusion restriction is also identified in the left posterolateral thalamus. There is no ev idence for hemorrhage or significant mass effect. No additional areas of diffusion restriction are id entified the remaining brain parenchyma demonstrates normal signal on all sequences. No abnormal enha ncement following IV gadolinium. No large chronic infarct or extra-axial fluid collection. VENTRICLES: Normal in size and configuration for age. VISUALIZED ORBITS: No significant abnormality. VISUALIZED PARANASAL SINUSES: No significant abnormality. ADDITIONAL FINDINGS: None. IMPRESSION: 1. Large acute to subacute left BALL ENDER ischemic infarct as described. No evidence for hemorrhage or abno rmal enhancement. Signer Name: Trevor Souza Jr, MD Signed: 11/05/2021 10:39 AM Workstation Name: [id number]
--- NOTE | 2021-11-05 19:43 | Progress Note ---
Assessment and Plan Assessment and plan: 46 YO Female with Obesity, HTN, possible CVA on DAPT but poor compliance, Nicotine Dependence presents to ED for evaluation. Patient reports "I feel weak on the right side". Patient dates that she was in her usual state of health at bedtime at approximate 2100 hrs. Patient reports awakening from sleep today and feeling right-sided weakness, headache, nausea/vomiting , memory impairment and blurred vision. However patient denies having the diagnosis of a CVA or frequent headaches or migraine. She presented with similar symptoms to this hospital few months ago.CT scan of the brain and was found to have left FITNESS AND WELLNESS MANAGER P2 occlusion. Teleneurology consulted. [facility] neuro tube handler consult ed. Patient deemed not a candidate for transfer and neuro intervention. Patient admitted to medical floor and initiated on CVA protocol. Patient initiaton dual antiplatelet therapy. Therapeutic anticoagulation not recommended. 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 Physical therapy consulted, Occupational Therapy consulted, speech therapy consulted. Patient was admitted with similar symptoms a few months ago. Her symptoms r esolved after the previous admission, according to patient. She denies history of frequent headaches or having a diagnosis of migraine. No family history of migraine. She does not think she was given the diagnosis of CVA previously. She admits to noncompliance with DAPT. CT head showed no acute process. CTA neck normal. CTA head showed left FITNESS AND WELLNESS MANAGER occlusion. Neurology consulted and following. MRI on 11/05 showed a large left FITNESS AND WELLNESS MANAGER infarct without hemorrhage or mass-effect. Patient remains in sinus rhythm. Echocardiogram unremarkable and bubble study negative. She will continue DAPT therapy and statin and counseled on compliance. Patient will need a close follow-up with neurology and ophthalmology after discharge. Patient reports progressive improvement of headaches and right-sided weakness and ambulating better. However blurred vision and memory impairment unchanged, according to patient. Alert, orientation is obscured by memory impairment, and has difficulty with the date and recall. Speech clear and appropriate. Pupils extraocular memories normal. Subtle right facial weakness noted. Tongue protrudes in midline. Visual acuity remains impaired. RUE: -5/5, RUE LUE: 4/5. [id number] test normal. Gait stable. (2) Obesity (BMI 30.0-34.9) Current Visit: Yes Status: Acute Plan to address problem: Balanced diet, increase physical activity at discharge. (3) Nicotine dependence Current Visit: Yes Status: Acute Qualifiers: Nicotine product type: cigarettes Substance use status: in withdrawal Qualified Code(s): F17.213 - Nicotine dependence, cigarettes, with withdrawal Plan to address problem: Smoking cessation counseled, supportive care, behavior change counseling, +15 minutes. (4) Hypertension Current Visit: Yes Status: Acute Qualifiers: Hypertension type: primary hypertension Qualified Code(s): I10 - Essential (primary) hypertension Plan to address problem: Monitor blood pressure every shift, continue medical management, permissive hypertension overnight. (5) compliance with medication regimen Current Visit: Yes Status: Acute Plan to address problem: Patient denies noncompliance (6) DVT prophylaxis Current Visit: Yes Status: Acute Plan to address problem: SCD to bilateral lower extremities while in bed (7) Advance care planning Current Visit: Yes Status: Acute Plan to address problem: Disease education conducted, care plan discussed, diagnoses discussed, prognosis discussed, patient is full code. Patient knowledges understanding agreement with care plan Discussed with the patient, her mother on phone and nursing staff. Disposition: Pending further improvement of symptoms, possible discharge tomorrow History Interval history: MRI showed a large infarct in the left FITNESS AND WELLNESS MANAGER distribution. Patient reports improvement of headaches and right-sided weakness and ambulating better. How ever blurred vision and memory impairment unchanged, according to patient. Hospitalist Physical - Constitutional Vitals: Temp Pulse Resp BP Pulse Ox 98.5 F 86 22 149/99 97 11/05/21 17:52 11/05/21 17:52 11/05/21 17:52 11/05/21 17:52 11/05/21 17:52 General appearance: Present: no acute distress - EENT Eyes: Present: PERRL, EOM intact ENT: hearing intact, clear oral mucosa - Neck Neck: Present: supple - Respiratory Respiratory effort: normal Respiratory: bilateral: CTA - Cardiovascular Rhythm: regular - Extremities Extremities: No edema - Abdominal General gastrointestinal: soft, non-tender, non-distended, normal bowel sounds - Neurologic Neurologic: other (Alert, orientation is obscured by memory impairment, and has difficulty with the date recall. Speech clear and appropriate. Pupils extraocular memories normal. Subtle right facial weakness noted. Tongue protrudes in midline. Visual acuity remains impaired. RUE: -5/5, RUE LUE: 4/5. Gait stable.) HEART Score - HEART Score Troponin: Troponin T < 0.010 ng/mL (0.00-0.029) 11/03/21 10:21 Results - Labs CBC & Chem 7: 11/05/21 04:22 11/05/21 04:22 Labs: Laboratory Last Values WBC 5.0 K/mm3 (4.5-11.0) 11/05/21 04:22 RBC 4.77 M/mm3 (3.65-5.03) 11/05/21 04:22 Hgb 14.5 gm/dl (10.1-14.3) H 11/05/21 04:22 Hct 43.4 % (30.3-42.9) H 11/05/21 04:22 MCV 91 fl (79-97) 11/05/21 04:22 MCH 30 pg (28-32) 11/05/21 04:22 MCHC 33 % (30-34) 11/05/21 04:22 RDW 15.4 % (13.2-15.2) H 11/05/21 04:22 Plt Count 250 K/mm3 (140-440) 11/05/21 04:22 Add Manual Diff Complete 11/05/21 04:22 Total Counted 100 11/05/21 04:22 Seg Neutrophils % Hand Scraper 11/05/21 04:22 Seg Neuts % (Manual) 30.0 % (40.0-70.0) L 11/05/21 04:22 Band Neutrophils % 0 % 11/05/21 04:22 Lymphocytes % (Manual) 54.0 % (13.4-35.0) H 11/05/21 04:22 Reactive Lymphs % (Man) 0 % 11/05/21 04:22 Monocytes % (Manual) 9.0 % (0.0-7.3) H 11/05/21 04:22 Eosinophils % (Manual) 7.0 % (0.0-4.3) H 11/05/21 04:22 Basophils % (Manual) 0 % (0.0-1.8) 11/05/21 04:22 Metamyelocytes % 0 % 11/05/21 04:22 Myelocytes % 0 % 11/05/21 04:22 Promyelocytes % 0 % 11/05/21 04:22 Blast Cells % 0 % 11/05/21 04:22 Nucleated RBC % Not Reportable 11/05/21 04:22 Seg Neutrophils # Man 1.5 K/mm3 (1.8-7.7) L 11/05/21 04:22 Band Neutrophils # 0.0 K/mm3 11/05/21 04:22 Lymphocytes # (Manual) 2.7 K/mm3 (1.2-5.4) 11/05/21 04:22 Abs React Lymphs (Man) 0.0 K/mm3 11/05/21 04:22 Monocytes # (Manual) 0.5 K/mm3 (0.0-0.8) 11/05/21 04:22 Eosinophils # (Manual) 0.4 K/mm3 (0.0-0.4) 11/05/21 04:22 Basophils # (Manual) 0.0 K/mm3 (0.0-0.1) 11/05/21 04:22 Metamyelocytes # 0.0 K/mm3 11/05/21 04:22 Myelocytes # 0.0 K/mm3 11/05/21 04:22 Promyelocytes # 0.0 K/mm3 11/05/21 04:22 Blast Cells # 0.0 K/mm3 11/05/21 04:22 WBC Morphology Not Reportable 11/05/21 04:22 Hypersegmented Neuts Not Reportable 11/05/21 04:22 Hyposegmented Neuts Not Reportable 11/05/21 04:22 Hypogranular Neuts Not Reportable 11/05/21 04:22 Smudge Cells Not Reportable 11/05/21 04:22 Toxic Granulation Not Reportable 11/05/21 04:22 Toxic Vacuolation Not Reportable 11/05/21 04:22 Dohle Bodies Not Reportable 11/05/21 04:22 Pelger-Huet Anomaly Not Reportable 11/05/21 04:22 Elias Rods Not Reportable 11/05/21 04:22 Platelet Estimate Consistent w auto 11/05/21 04:22 Clumped Platelets Not Reportable 11/05/21 04:22 Plt Clumps, EDTA Not Reportable 11/05/21 04:22 Large Platelets Not Reportable 11/05/21 04:22 Giant Platelets Not Reportable 11/05/21 04:22 Platelet Satelliting Not Reportable 11/05/21 04:22 Plt Morphology Comment Not Reportable 11/05/21 04:22 RBC Morphology Not Reportable 11/05/21 04:22 Dimorphic RBCs Not Reportable 11/05/21 04:22 Polychromasia Not Reportable 11/05/21 04:22 Hypochromasia Not Reportable 11/05/21 04:22 Poikilocytosis Not Reportable 11/05/21 04:22 Anisocytosis Not Reportable 11/05/21 04:22 Microcytosis Not Reportable 11/05/21 04:22 Macrocytosis Not Reportable 11/05/21 04:22 Spherocytes Not Reportable 11/05/21 04:22 Pappenheimer Bodies Not Reportable 11/05/21 04:22 Sickle Cells Not Reportable 11/05/21 04:22 Target Cells Not Reportable 11/05/21 04:22 Tear Drop Cells Not Reportable 11/05/21 04:22 Ovalocytes Not Reportable 11/05/21 04:22 Helmet Cells Not Reportable 11/05/21 04:22 [place] Bodies Not Reportable 11/05/21 04:22 [place] Rings Not Reportable 11/05/21 04:22 [place] Cells Not Reportable 11/05/21 04:22 Bite Cells Not Reportable 11/05/21 04:22 Crenated Cell Not Reportable 11/05/21 04:22 Elliptocytes Not Reportable 11/05/21 04:22 Acanthocytes (Spur) Not Reportable 11/05/21 04:22 Rouleaux Not Reportable 11/05/21 04:22 Hemoglobin C Crystals Not Reportable 11/05/21 04:22 Schistocytes Not Reportable 11/05/21 04:22 Malaria parasites Not Reportable 11/05/21 04:22 Anastacio Bodies Not Reportable 11/05/21 04:22 Hem Pathologist Commnt No 11/05/21 04:22 PT 12.4 Sec. (12.2-14.9) 11/03/21 10:10 INR 0.82 (0.87-1.13) L 11/03/21 10:10 APTT 27.6 Sec. (24.2-36.6) 11/03/21 10:10 Sodium 138 mmol/L (137-145) 11/05/21 04:22 Potassium 4.8 mmol/L (3.6-5.0) 11/05/21 04:22 Chloride 101.8 mmol/L (98-107) 11/05/21 04:22 Carbon Dioxide 25 mmol/L (22-30) 11/05/21 04:22 Anion Gap 16 mmol/L 11/05/21 04:22 BUN 14 mg/dL (7-17) 11/05/21 04:22 Creatinine 1.1 mg/dL (0.6-1.2) 11/05/21 04:22 Estimated GFR > 60 ml/min 11/05/21 04:22 BUN/Creatinine Ratio 13 % 11/05/21 04:22 Glucose 80 mg/dL (65-100) 11/05/21 04:22 Calcium 9.5 mg/dL (8.4-10.2) 11/05/21 04:22 Phosphorus 4.30 mg/dL (2.5-4.5) 11/03/21 10:10 Magnesium 1.90 mg/dL (1.7-2.3) 11/03/21 10:10 Total Bilirubin 0.40 mg/dL (0.1-1.2) 11/05/21 04:22 AST 17 units/L (5-40) 11/05/21 04:22 ALT 15 units/L (7-56) 11/05/21 04:22 Alkaline Phosphatase 65 units/L (35-129) 11/05/21 04:22 Troponin T < 0.010 ng/mL (0.00-0.029) 11/03/21 10:21 Total Protein 6.9 g/dL (6.3-8.2) 11/05/21 04:22 Albumin 4.3 g/dL (3.9-5) 11/05/21 04:22 Albumin/Globulin Ratio 1.7 % 11/05/21 04:22 Triglycerides 65 mg/dL (2-149) 11/03/21 10:21 Cholesterol 221 mg/dL (50-199) H 11/03/21 10:21 LDL Cholesterol Direct 129 mg/dL (50-130) 11/03/21 10:21 HDL Cholesterol 79 mg/dL (40-59) H 11/03/21 10:21 Cholesterol/HDL Ratio 2.79 % 11/03/21 10:21 TSH 0.629 mlU/mL (0.270-4.200) 11/03/21 10:21 Urine Color Yellow (Yellow) 11/03/21 14:10 Urine Turbidity Cloudy (Clear) 11/03/21 14:10 Urine pH 5.0 (5.0-7.0) 11/03/21 14:10 Ur Specific [place] 1.015 (1.003-1.030) 11/03/21 14:10 Urine Protein 30 mg/dl mg/dL (Negative) 11/03/21 14:10 Urine Glucose (UA) Neg mg/dL (Negative) 11/03/21 14:10 Urine Ketones Neg mg/dL (Negative) 11/03/21 14:10 Urine Blood Sm (Negative) 11/03/21 14:10 Urine Nitrite Neg (Negative) 11/03/21 14:10 Urine Bilirubin Neg (Negative) 11/03/21 14:10 Urine Urobilinogen < 2 mg/dL (<2.0) 11/03/21 14:10 Ur Leukocyte Esterase Tr (Negative) 11/03/21 14:10 Urine WBC (Auto) 13.0 /HPF (0.0-6.0) H 11/03/21 14:10 Urine RBC (Auto) 2.0 /HPF (0.0-6.0) 11/03/21 14:10 U Epithel Cells (Auto) 6.0 /HPF (0-13.0) 11/03/21 14:10 Amorphous Crystals Few 11/03/21 14:10 Urine Mucus Few /HPF 11/03/21 14:10 Urine Opiates Screen Negative 11/03/21 14:10 Urine Methadone Screen Negative 11/03/21 14:10 Ur Barbiturates Screen Negative 11/03/21 14:10 Ur Phencyclidine Scrn Negative 11/03/21 14:10 Ur Amphetamines Screen Negative 11/03/21 14:10 U Benzodiazepines Scrn Negative 11/03/21 14:10 Urine Cocaine Screen Negative 11/03/21 14:10 U Marijuana (THC) Screen Negative 11/03/21 14:10 Drugs of Abuse Note Disclamer 11/03/21 14:10 Evans/IV: Voiding Method Toilet Active Medications - Current Medications Current Medications: Generic Name Dose Route Start Last Admin Trade Name Freq PRN Reason Stop Dose Admin Acetaminophen 650 mg 11/03/21 17:00 11/04/21 22:20 Acetaminophen 325 Mg Tab PO 650 mg Q4H PRN Administration Pain, Mild (1-3) Aspirin 325 mg 11/04/21 10:00 11/05/21 10:16 Aspirin 325 Mg Tab PO 325 mg QDAY LEROY Administration Atorvastatin Calcium 40 mg 11/03/21 22:00 11/04/21 22:20 Atorvastatin 40 Mg Tab PO 40 mg QHS LEROY Administration Bisacodyl 10 mg 11/04/21 10:00 Bisacodyl 10 Mg Rect Supp TN QDAY PRN Constipation Clopidogrel Bisulfate 75 mg 11/04/21 10:00 11/05/21 10:16 Clopidogrel 75 Mg Tab PO 75 mg QDAY LEROY Administration Magnesium Hydroxide 30 ml 11/03/21 17:00 Magnesium Hydroxide (Mom) Oral Liqd Udc PO Q4H PRN Constipation Metoclopramide HCl 10 mg 11/03/21 17:00 Metoclopramide 10 Mg Tab PO Q6H PRN Nausea And Vomiting Ondansetron HCl 4 mg 11/03/21 17:00 Ondansetron 4 Mg/2 Ml Inj IV Q8H PRN Nausea And Vomiting Promethazine HCl 25 mg 11/03/21 17:00 Promethazine 25 Mg Rect Supp TN Q6H PRN Nausea And Vomiting Sodium Chloride 10 ml 11/03/21 17:00 Sodium Chloride 0.9% 10 Ml Flush Syringe IV PRN PRN LINE FLUSH
[2021-11-05] MEDS: ACETAMINOPHEN 325 MG TAB PO PRN (21:44)
[2021-11-06] MEDS: CLOPIDOGREL 75 MG TAB PO SCH (08:59)
[2021-11-06] MEDS: ASPIRIN 325 MG TAB PO SCH (08:59)
[2021-11-06 09:51] LABS: Calcium 9.3 mg/dL (8.4-10.2)
--- NOTE | 2021-11-06 11:04 | Discharge Summary ---
Providers - Providers Date of Admission: 11/03/21 16:05 Date of discharge: 11/06/21 Attending physician: OTF ANDUJAR MD 11/03/21 16:05 Occupational Therapy Evaluate and Treat [CONS] Routine Comment: Reason For Exam: Neuro deficits Physical Therapy Evaluation and Treat [CONS] Routine Comment: Reason For Exam: Neuro deficits 11/03/21 16:06 Speech Therapy Evaluation and Treat [CONS] Routine Reason For Exam: swallow eval 11/05/21 11:08 Speech Therapy Evaluation and Treat [CONS] Routine Reason For Exam: Acute CVA 11/05/21 11:15 [facility] Neuro Consult Order [CONS] ONCE Comment: Consulting Provider: Reason For Exam: Acute CVA with a left BPM ARCHITECT occlusion Primary care physician: FINANCE OFFICER Hospitalization Reason for admission: Acute left BPM ARCHITECT infarct Condition: Stable Pertinent studies: Reviewed. Procedures: None. Hospital course: The patient is 46 YO Female with Obesity, HTN, CVA on DAPT, Migraine POLO, Nicotine Dependence, Medication Noncompliance presents to ED for evaluation. Patient reports "I feel weak on the right side". Patient dates that she was in her usual state of health at bedtime at approximate 2100 hrs. Patient reports awakening from sleep today and feeling right-sided weakness, headache, and blurred vision. Patient transported to [facility] via private vehicle for further care and evaluation of the aforementioned symptoms. The patient was seen and evaluated in the emergency department. All lab and imaging studies reviewed. Patient remained CT scan of the brain and was found to have left BPM ARCHITECT P2 occlusion. Teleneurology consulted. [facility] neuro process coach consulted. Patient deemed not a candidate for transfer and neuro intervention. Patient admitted to medical floor and initiated on CVA protocol. Patient initiated on dual antiplatelet therapy. Therapeutic anticoagulation not recommended. Patient underwent TTE revealing EF 50-55% was relatively unremarkable and does not demonstrate PFO. Patient underwent MRI brain with and without contrast revealing "large acute to subacute left BPM ARCHITECT ischemic infarct". Patient was evaluated by Occupational Therapy and physical therapy recommending outpatient PT. Patient will be referred to outpatient neurology and PCP for follow-up. Patient expressed understanding. Patient is medically clear for discharge. Disposition: 01 HOME / SELF CARE / HOMELESS Final Discharge Diagnosis (Prints w/discharge instructions): Acute left BPM ARCHITECT infarct, obesity, hypertension, nicotine dependence, noncompliance with medication Time spent for discharge: 45 min Core Measure Documentation - Palliative Care Palliative Care/ Comfort Measures: Not Applicable - Core Measures Any of the following diagnoses?: stroke - Stroke Discharge Requirements Statin for LDL = or >70 mg/dl on DC: Yes Anticoag for atrial fib/atrial flutter: Not Applicable Antithrombotic for ischemic stroke: Yes Exam - Constitutional Vitals: Temp Pulse Resp BP Pulse Ox 97.9 F 64 16 122/83 95 11/06/21 04:02 11/06/21 04:02 11/06/21 07:20 11/06/21 04:02 11/06/21 07:20 General appearance: Present: no acute distress, well-nourished, obese - EENT Eyes: Present: PERRL, EOM intact ENT: hearing intact, clear oral mucosa, dentition normal - Neck Neck: Present: supple, normal ROM - Respiratory Respiratory effort: normal Respiratory: bilateral: CTA - Cardiovascular Rhythm: regular Heart Sounds: Present: S1 & S2 - Extremities Extremities: no ischemia, pulses intact, pulses symmetrical, No edema, normal temperature, normal color Peripheral Pulses: within normal limits - Abdominal General gastrointestinal: Present: soft, non-tender, non-distended, normal bowel sounds Female genitourinary: Present: deferred - Rectal Rectal Exam: deferred - Integumentary Integumentary: Present: clear, warm, dry - Musculoskeletal Musculoskeletal: strength equal bilaterally - Psychiatric Psychiatric: appropriate mood/affect, intact judgment & insight, memory intact, cooperative - Neurologic Neurologic: CNII-XII intact, moves all extremities - Allied Health Allied health notes reviewed: nursing Plan Activity: advance as tolerated Diet: low salt Additional Instructions: The patient is 46 YO Female with Obesity, HTN, CVA on DAPT, Migraine POLO, Nicotine Dependence, Medication Noncompliance presents to ED for evaluation. Patient reports "I feel weak on the right side". Patient dates that she was in her usual state of health at bedtime at approximate 2100 hrs. Patient reports awakening from sleep today and feeling right-sided weakness, headache, and blurred vision. Patient transported to [facility] via private vehicle for further care and evaluation of the aforementioned symptoms. The patient was seen and evaluated in the emergency department. All lab and imaging studies reviewed. Patient remained CT scan of the brain and was found to have left BPM ARCHITECT P2 occlusion. Teleneurology consulted. [facility] neuro process coach consulted. Patient deemed not a candidate for transfer and neuro intervention. Patient admitted to medical floor and initiated on CVA protocol. Patient initiated on dual antiplatelet therapy. Therapeutic anticoagulation not recommended. Patient underwent TTE revealing EF 50-55% was relatively unremarkable and does not demonstrate PFO. Patient underwent MRI brain with and without contrast revealing "large acute to subacute left BPM ARCHITECT ischemic infarct". Patient was evaluated by Occupational Therapy and physical therapy recommending outpatient PT. Patient will be referred to outpatient neurology and PCP for follow-up. Patient expressed understanding. Patient is medically clear for discharge. Care Plan Goals: Patient is medically clear for discharge. Assessment: The patient is 46 YO Female with Obesity, HTN, CVA on DAPT, Migraine POLO, Nicotine Dependence, Medication Noncompliance presents to ED for evaluation. Patient reports "I feel weak on the right side". Patient dates that she was in her usual state of health at bedtime at approximate 2100 hrs. Patient reports awakening from sleep today and feeling right-sided weakness, headache, and blurred vision. Patient transported to [facility] via private vehicle for further care and evaluation of the aforementioned symptoms. The patient was seen and evaluated in the emergency department. All lab and imaging studies reviewed. Patient remained CT scan of the brain and was found to have left BPM ARCHITECT P2 occlusion. Teleneurology consulted. [facility] neuro process coach consulted. Patient deemed not a candidate for transfer and neuro intervention. Patient admitted to medical floor and initiated on CVA protocol. Patient initiated on dual antiplatelet therapy. Therapeutic anticoagulation not recommended. Patient underwent TTE revealing EF 50-55% was relatively unremarkable and does not demonstrate PFO. Patient underwent MRI brain with and without contrast revealing "large acute to subacute left BPM ARCHITECT ischemic infarct". Patient was evaluated by Occupational Therapy and physical therapy recommending outpatient PT. Patient will be referred to outpatient neurology and PCP for follow-up. Patient expressed understanding. Patient is medically clear for discharge. Follow up with: CRISTOPHER FISHER MD [Staff Physician] - 14 Days JUAN R GUZMAN MD [Staff Physician] - 14 Days Prescriptions: AtorvaSTATin [Lipitor] 40 mg PO QHS #30 tablet Aspirin 325 mg PO QDAY #30 tablet
--- NOTE | 2021-11-06 12:10 | Electrocardiograph Report ---
[facility] Test Date: 2021-11-03 Test Time: 14:22:09 Pat Name: KAUSHIK CORNELIUS Department: Room: A362 Gender: F Diamond Grinder: [id number] : 1975 Requested By: JENNY TROY Order Number: [id number] Reading MD: Aidan Gan Measurements Intervals [place] Rate: 70 P: 33 [place]: 184 QRS: 29 QRSD: 71 T: 22 QT: 415 QTc: 449 Interpretive Statements Sinus rhythm Low voltage, precordial leads Compared to ECG 05/08/2021 06:10:11 Low QRS voltage now present Myocardial infarct finding no longer present T-wave abnormality no longer present Electronically Signed On 11-06-2021 9:09:55 PDT by Aidan Gan
[2021-11-06] MEDS: ACETAMINOPHEN 325 MG TAB PO PRN (13:33)
[2021-11-06 14:01] VITALS: BP 122/88
== END 2021-11-06 15:59 | disposition home or self-care (01) | DRG 66 ==
LOC: ED 00:40 → 3A 16:05
PROVIDERS: ADMIT Internal Medicine; ATTEND Student in an Organized Health Care Education/Training Program
DX: I63.9 Cerebral infarction, unspecified (principal); G43.909 Migraine, unspecified, not intractable, without status migrainosus; I10 Essential (primary) hypertension; F17.200 Nicotine dependence, unspecified, uncomplicated; E66.9 Obesity, unspecified; Z68.30 Body mass index [BMI] 30.0-30.9, adult; Z82.49 Family history of ischemic heart disease and other diseases of the circulatory system; Z91.15 Patient's noncompliance with renal dialysis
CPT/HCPCS: 36415; 70450; 70496; 70498; 70553; 80048; 80053; 80061; 80307; 81001; 83036; 83735; 84100; 84443; 84484; 85007; 85025; 85027; 85610; 85730; 87086; 93005; 93306; 93880; 96374; 96375; 99285; 99406; G0378; A9575; C8929; J0780; J1885; J3475; Q9967